=== PATIENT | female | born 1930 | race Caucasian/White ===

== ENCOUNTER 2017-04-04 13:06 | Inpatient (IN) | payer MEDICARE, MEDICAID ==
[~2017-04-04] VITALS: Ht 170.2 cm; Wt 82.1 kg
[~2017-04-04 13:06] MED LIST: ACET-73 PO; ALBU2.5V11 HHN; BISM525O70 PO; CALC-343 PO; DEXT15CA PO; DIVA250T4 PO; DOCU100C68 PO; DONE5TAB3 PO; DONE5TAB8 PO; ENOX40DI SQ; HYDR-3326 PO; IPRA0.2S18 IH; LEVO112T5 PO; LEVO137T PO; MAGN400O6 PO; MULT1TAB11 PO; PANT40TA2 PO; TRAM50TA2 PO
--- NOTE | 2017-04-04 13:20 | NUR ---
BIB [facility] C/O R FOOT PAIN AND SWELLING. PT AAOX2. NOTED ANXIOUS, AGITATED. VSS. SEEN BY MD FOR EVAL. SAFETY AND COMFORT MEASURES PROVIDED. WILL MONITOR.
[2017-04-04] MEDS ORDERED: IV NS 0.9% 1,000 ML ONE ×2 (13:42→14:55)
[2017-04-04] MEDS ORDERED: IV SET PRIMARY PUMP SET 1 EA INFUS.SET MC ONE ×3 (13:42→23:06)
[2017-04-04] MEDS ORDERED: MORPHINE SULFATE INJ 4 MG/ML DISP.SYRIN ONE (13:42)
[2017-04-04] MEDS ORDERED: ONDANSETRON HCL/PF 4 MG/2 ML VIAL ONE (13:42)
--- NOTE | 2017-04-04 13:52 | NUR ---
SPOKE WITH DAUGHTER (DPA) PRABHA JANG AND OBTAINED VERBAL CONSENT FOR TREATMENT
[2017-04-04] MEDS ORDERED: MORPHINE SULFATE INJ 2 MG/ML DISP.SYRIN IV ONE (14:00)
[2017-04-04] MEDS ORDERED: IV NS 0.9% 1,000 ML BAG IV ONE ×2 (14:00→15:00)
[2017-04-04] MEDS ORDERED: ONDANSETRON HCL/PF - ER 4 MG/2 ML VIAL IV ONE (14:00)
--- NOTE | 2017-04-04 14:10 | NUR ---
PT TAKEN TO CT.
[2017-04-04 14:12] LABS: BASOPHILS % (AUTO) 0.3 % (0.0-2.0); EOSINOPHILS # (AUTO) 0.2 /CMM (0.0-0.7); EOSINOPHILS % (AUTO) 1.2 % (0.0-6.0); HEMATOCRIT 42 % (33-45); HEMOGLOBIN 13.8 g/dL (11.5-14.8); LYMPHOCYTES # (AUTO) 2.2 /CMM (0.8-4.8); MEAN CORPUSCULAR HEMOGLOBIN 29 PG (26.0-33.0); MEAN CORPUSCULAR HGB CONC 33 g/dl (31.0-36.0); MEAN CORPUSCULAR VOLUME 87 fL (82-100); MONOCYTES # (AUTO) 1.5 /CMM (0.1-1.30); NEUTROPHILS # (AUTO) 10.1 /CMM (1.8-8.9); NEUTROPHILS % (AUTO) 71.5 % (43.0-81.0); PLATELET COUNT (AUTO) 269 /CMM (150-450); RDW COEFFICIENT OF VARIATION 14.6 (11.5-15.0); RED BLOOD CELL COUNT(AUTO) 4.82 MIL/uL (4.0-5.2)
--- NOTE | 2017-04-04 14:14 | NUR ---
PT NOT READY FOR CT SCAN OR CXR, ER WILL CALL.
[2017-04-04 14:21] LABS: CALCIUM, SERUM 8.6 mg/dL (8.5-10.1); POTASSIUM 4.3 mmol/L (3.5-5.1)
[2017-04-04 14:27] LABS: ALBUMIN 2.9 g/dL (3.4-5.0); BILIRUBIN,DIRECT 0.1 mg/dL (0.0-0.2); BILIRUBIN,TOTAL 0.3 mg/dL (0.2-1.0); TOTAL PROTEIN, SERUM 7.7 g/dL (6.4-8.2)
[2017-04-04] MEDS ORDERED: VANCOMYCIN 1 GM in IV D5W 250 ML IV ONE (15:30)
[2017-04-04] MEDS ORDERED: PIPERACILLIN /TAZOBACTAM 3.375 G in IV D5W 50 ML IV ONE (15:30)
--- NOTE | 2017-04-04 15:38 | NUR ---
SEASONING MIXER AT FOR BLOOD CULTURE DRAW.
--- NOTE | 2017-04-04 15:40 | NUR ---
PAGED DR HANDY FOR CALL BACK
--- NOTE | 2017-04-04 15:40 | NUR ---
INFORMED NURSING STONE UNLOADER OF NEED FOR M/S BED
--- NOTE | 2017-04-04 15:44 | NUR ---
DR HANDY ON THE LINE WITH DR VELAZCO
[2017-04-04 16:13] LABS: APPEARANCE,URINE Clear (CLEAR); BILIRUBIN,URINE Negative (NEGATIVE); BLOOD, URINE Trace-intact Ery/uL (NEGATIVE); COLOR,URINE Yellow (YELLOW); KETONES,URINE 15 (NEGATIVE); LEUKOCYTE ESTERASE ,URINE Small (NEGATIVE); NITRITE, URINE Positive (NEGATIVE); PH,URINE 6.5 (5.0-8.0); PROTEIN,URINE 30 mg/dl (NEGATIVE); UGLUCOSE Negative (NEGATIVE); UROBILINOGEN,URINE 0.2 EU/dL (0.2)
[2017-04-04] MEDS ORDERED: LEVO125T8 PO (16:19)
[2017-04-04] MEDS ORDERED: NA P133E RC (16:19)
[2017-04-04] MEDS ORDERED: CRAN3875 PO (16:19)
[2017-04-04] MEDS ORDERED: MAG30ORA PO (16:19)
[2017-04-04] MEDS ORDERED: BISA10SU8 RC (16:19)
[2017-04-04] MEDS ORDERED: CEPH-570 PO (16:19)
[2017-04-04] MEDS ORDERED: ACET-868 PO (16:19)
[2017-04-04] MEDS ORDERED: CALC-883 PO (16:19)
[2017-04-04] MEDS ORDERED: ASCO-340 PO (16:19)
[2017-04-04] MEDS ORDERED: CRAN425C PO (16:19)
[2017-04-04] MEDS ORDERED: OMEG1CAP PO (16:19)
[2017-04-04] MEDS ORDERED: ZINC220T PO (16:19)
[2017-04-04 16:26] LABS: BACTERIA,URINE Many /HPF (None Seen); RBC,URINE 0-2 /HPF (0-2); SQUAMOUS EPITHELIAL CELL,UR Few /HPF (None Seen); WBC,URINE TOO NUMEROUS TO COUN /HPF (0-3)
--- NOTE | 2017-04-04 16:36 | NUR ---
TELE 204-1
--- NOTE | 2017-04-04 16:54 | NUR ---
report given to etienne zambrano for ms room 204-1
[2017-04-04 17:30] VITALS: BP 122/56
--- NOTE | 2017-04-04 17:30 | NUR ---
MS AC/DC REWINDER PATIENT ADMITTED FROM SNF FOR CELLULITIS. PATIENT BROUGHT FROM ER. PATIENT IS AWAKE, APPEARS ANXIOUS. MADE COMFORTABLE IN BED, V/S TAKEN AND RECORDED. PATIENT IS A/O X2, WITH CONFUSION, UNCOOPERATIVE AND WITH EPISODE OF SCREAMING BEHAVIOR. HAD BOWEL MOVEMENT TODAY, SMALL AMOUNT, PERINEAL CARE PROVIDED. NICOLE CATH INTACT, DRAINING TO GRAVITY, URINE CLEAR AND YELLOW. PLACE CALL LIGHT WITHIN REACH. WILL CONT TO MONITOR.
--- NOTE | 2017-04-04 18:00 | NUR ---
PHYSICIAN ORDERS FAXED TO PHARMACY, SPOKE TO ANTONIO-PHARMACIST STATED HE WILL ENTER THE MEDICATIONS.
[2017-04-04] MEDS ORDERED: FEE PK DOSING 1 MIN EA MC ONE (18:50)
--- NOTE | 2017-04-04 19:30 | NUR ---
MS RN CLOSING NOTES PATIENT IN BED, A/O X2. NOT IN DISTRESS. ON OXYGEN AT 2L/MIN VIA NC, NO SOB NOTED. NO C/O PAIN AT THIS TIME. ENDORSED TO CONDENSER TUBE TENDER RN FOR CONTINUITY OF CARE.
--- NOTE | 2017-04-04 20:00 | NUR ---
PATIENT IS ALERT AND AWAKE, NO SOB, ON 2LPM VIA , 96%, WITH EPISODES OF CONFUSION AND IRRITABILITY, DENIES ANY PAIN AT THIS TIME, RIGHT HAND SALINE LOCK PATENT, NICOLE CATHETER DRAINING WELL WITH YELLOW URINE, SON AT THE BEDSIDE, KEPT SAFE AND COMFORTABLE, CALL LIGHT WITHIN REACH.
[2017-04-04] MEDS ORDERED: ALBUTEROL FS 2.5 MG/3 ML VIAL.NEB NEB PRN (20:30)
[2017-04-04] MEDS ORDERED: HYDROCODONE/APAP 5/325MG 1 EACH TABLET PO PRN (20:30)
[2017-04-04] MEDS ORDERED: POLYETHYLENE GLYCOL 3350 17 GM POWD.PACK ONE (20:54)
[2017-04-04] MEDS ORDERED: MAGNESIUM CITRATE 296 ML BOTTLE ONE (20:55)
[2017-04-04] MEDS ORDERED: CEPHALEXIN MONOHYDRATE 500 MG CAPSULE PO ONE (20:56)
[2017-04-04] MEDS: CEPHALEXIN MONOHYDRATE 500 MG CAPSULE PO SCH (21:04)
[2017-04-04 22:00] VITALS: BP 112/67
[2017-04-04] MEDS ORDERED: MAGNESIUM CITRATE 296 ML BOTTLE PO ONE (22:00)
[2017-04-04] MEDS ORDERED: IV NS 0.9% 250 ML IV ONE (23:06)
[2017-04-04] MEDS ORDERED: SECONDARY IV SET 1 EA INFUS.SET MC ONE (23:07)
[2017-04-04] MEDS: PIPERACILLIN /TAZOBACTAM 2.25 G in IV D5W 50 ML IV SCH (23:27)
[2017-04-04] MEDS ORDERED: ALBUTEROL FS 2.5 MG/3 ML VIAL.NEB NEB SCH (23:30)
[2017-04-05] MEDS ORDERED: ACETAMINOPHEN 325 MG TABLET PO PRN ×3 (03:30→09:00)
[2017-04-05] MEDS ORDERED: HOME MED MISCELLANEOUS XX SCH ×2 (03:30)
[2017-04-05] MEDS ORDERED: MAG HYDROX/AL HYDROX/SIMETH 30 ML UDC PO PRN (03:30)
[2017-04-05] MEDS ORDERED: MAGNESIUM HYDROXIDE 30 ML UDC PO PRN ×2 (03:30→08:00)
[2017-04-05] MEDS ORDERED: NA PHOS,M-B/NA PHOS,DI-BA 1 EA ENEMA RC PRN ×2 (03:30→08:00)
[2017-04-05] MEDS ORDERED: HYDROCODONE/APAP 5/325MG 1 EACH TABLET ONE (04:47)
[2017-04-05] MEDS: PIPERACILLIN /TAZOBACTAM 2.25 G in IV D5W 50 ML IV SCH ×4 (05:26→23:07)
--- NOTE | 2017-04-05 06:44 | NUR ---
PATIENT IS ALERT AND AWAKE, IRRITABLE, HOSTILE DURING NURSING CARE AND DURING MEDICATION ADMINISTRATION, COMPLAINING OF RECTAL PAIN DUE TO CONSTIPATION AND FECAL IMPACTION, GIVEN NORCO. WATERY STOOL COMING OUT X3, RIGHT FOOT OFFLOADED, PROVIDED GOOD PERINEAL CARE, KEPT SAFE AND COMFORTABLE, CALL LIGHT WITHIN REACH.
[2017-04-05 07:02] LABS: BASOPHILS % (AUTO) 0.3 % (0.0-2.0); EOSINOPHILS # (AUTO) 0.1 /CMM (0.0-0.7); EOSINOPHILS % (AUTO) 0.7 % (0.0-6.0); HEMATOCRIT 37 % (33-45); HEMOGLOBIN 12.1 g/dL (11.5-14.8); LYMPHOCYTES # (AUTO) 1.5 /CMM (0.8-4.8); LYMPHOCYTES % (AUTO) 11.4 % (20.0-44.0); MEAN CORPUSCULAR HEMOGLOBIN 29 PG (26.0-33.0); MEAN CORPUSCULAR HGB CONC 33 g/dl (31.0-36.0); MEAN CORPUSCULAR VOLUME 88 fL (82-100); MONOCYTES # (AUTO) 1.5 /CMM (0.1-1.30); MONOCYTES % (AUTO) 11.6 % (2.0-12.0); NEUTROPHILS # (AUTO) 9.8 /CMM (1.8-8.9); PLATELET COUNT (AUTO) 268 /CMM (150-450); RDW COEFFICIENT OF VARIATION 15.8 (11.5-15.0); RED BLOOD CELL COUNT(AUTO) 4.23 MIL/uL (4.0-5.2); WHITE BLOOD COUNT (AUTO) 12.9 K/uL (4.3-11.0)
[2017-04-05 07:06] LABS: CALCIUM, SERUM 7.9 mg/dL (8.5-10.1); CREATININE 0.8 mg/dL (0.6-1.3); MAGNESIUM 2.5 mg/dL (1.8-2.4); PHOSPHORUS 3.1 mg/dL (2.5-4.9); POTASSIUM 4.8 mmol/L (3.5-5.1)
[2017-04-05 08:00] VITALS: BP 106/64
[2017-04-05] MEDS ORDERED: HYDROCODONE/APAP 5/325MG 1 EACH TABLET PO PRN (08:00)
[2017-04-05] MEDS ORDERED: MAG HYDROX/AL HYDROX/SIMETH 30 ML UDC PO SCH (08:00)
[2017-04-05] MEDS ORDERED: BISACODYL SUPP (10 MG) 10 MG/SUPP.RECT SUPP.RECT RC PRN ×2 (08:00→09:00)
[2017-04-05] MEDS ORDERED: ALBUTEROL FS 2.5 MG/3 ML VIAL.NEB NEB PRN (08:00)
[2017-04-05] MEDS ORDERED: MISCELLANEOUS MED 1 EA EA PO PRN (08:00)
[2017-04-05] MEDS: POLYETHYLENE GLYCOL 3350 17 GM POWD.PACK PO SCH (09:00)
[2017-04-05] MEDS ORDERED: TRAMADOL HCL 50 MG TABLET PO SCH (09:00)
[2017-04-05] MEDS ORDERED: Medication Not On Formulary EA (Multivitamins W-Minerals (Multivitamin With Minerals) 1 PO SCH (09:00)
[2017-04-05] MEDS ORDERED: DOCUSATE SODIUM 100 MG CAPSULE PO SCH (09:00)
[2017-04-05] MEDS ORDERED: CALCIUM CARBONATE PO SCH (09:00)
[2017-04-05] MEDS ORDERED: VITAMIN D3 PO SCH (09:00)
[2017-04-05] MEDS ORDERED: Medication Not On Formulary EA (Cran/Vitc/Mannose/Inulin/Brom (Uti-Stat Liquid) 30 ML) PO SCH (09:00)
[2017-04-05] MEDS ORDERED: Medication Not On Formulary EA (Omega-3 Fatty Acids/Fish Oil (Fish Oil 1,000 Mg Capsule) PO SCH ×2 (09:00)
[2017-04-05] MEDS ORDERED: DIVALPROEX SODIUM 250 MG TABLET.DR PO SCH (09:00)
[2017-04-05] MEDS ORDERED: Medication Not On Formulary EA (Cranberry Extract (Cranberry) 425 MG) PO SCH (09:00)
[2017-04-05] MEDS ORDERED: CEPHALEXIN MONOHYDRATE 500 MG CAPSULE PO SCH (09:00)
[2017-04-05] MEDS ORDERED: [UNRECOGNIZED DRUG - OTHER] PO SCH (09:00)
[2017-04-05] MEDS ORDERED: HOME MED MISCELLANEOUS PO SCH (09:00)
[2017-04-05] MEDS: ZINC SULFATE 220 MG CAPSULE PO SCH (09:27)
[2017-04-05] MEDS: TRAMADOL HCL 50 MG TABLET PO SCH ×2 (09:28→17:00)
[2017-04-05] MEDS: LEVOTHYROXINE SODIUM 125 MCG TABLET PO SCH (09:29)
[2017-04-05] MEDS: DIVALPROEX SODIUM 250 MG TABLET.DR PO SCH ×2 (09:29→12:35)
[2017-04-05] MEDS: DOCUSATE SODIUM 100 MG CAPSULE PO SCH (09:29)
[2017-04-05] MEDS: ASCORBIC ACID 500 MG TABLET PO SCH ×3 (09:29→17:00)
[2017-04-05] MEDS: MULTIPLE VIT/MINERALS 1 EA TABLET PO SCH ×2 (09:29→17:00)
[2017-04-05] MEDS: CALCIUM CARB 250MG /VITAMIN D 1 UDTAB PO SCH (09:30)
[2017-04-05] MEDS: ENOXAPARIN SODIUM 40 MG/0.4 ML DISP.SYRIN SQ SCH (09:30)
[2017-04-05] MEDS: CEPHALEXIN MONOHYDRATE 500 MG CAPSULE PO SCH (09:30)
--- NOTE | 2017-04-05 09:30 | NUR ---
MS/RN Labs reviewed Morning labs reviewed: -WBC 12.9 -Urine WBC, too numerous to count
[2017-04-05] MEDS: VANCOMYCIN 0.75 GM in IV D5W 250 ML IV SCH (09:31)
[2017-04-05] MEDS ORDERED: SECONDARY IV SET 1 EA INFUS.SET MC ONE (09:34)
--- NOTE | 2017-04-05 13:15 | NUR ---
MS/RN S/B Dr Harrell Seen by Dr Harrell - labs ordered for tomorrow. Consults ordered for wound care and ID.
[2017-04-05] MEDS ORDERED: ONDANSETRON HCL/PF 4 MG/2 ML VIAL IV PRN (13:30)
[2017-04-05 16:00] VITALS: BP 94/47
[2017-04-05 16:03] VITALS: BP 94/47
[2017-04-05] MEDS ORDERED: Z GUARD REMEDY 2 OZ OINT TP PRN (16:30)
[2017-04-05] MEDS: LACTOBACILLUS RHAMNOSUS GG 1 EACH CAP.SPRINK PO SCH (17:00)
--- NOTE | 2017-04-05 17:10 | NUR ---
MS/electronics utility worker update Daughter at bedside and updated as to plan of care.
--- NOTE | 2017-04-05 18:52 | NUR ---
MS RN CLOSING NOTES PT IS IN BED RESTING. SON AT BEDSIDE. PT HAS REFUSED MEDS, NEED TO ATTEMPT AGAIN IN 1 HR. A/O X1-2. F/C 500 CC OUTPUT.BM X 1. MEDS HAVE BEEN GIVEN ORALLY AND NEED TO CUT THE BIGGER ONES. PT HAS BEEN REFUSING TO EAT, NEED TO GIVE SNACKS IN BETWEEN. FOLLOW UP WITH WOUND CARE FOR RIGHT ANKLE AND INFECTIOUS CONTROL. BED IS IN LOW POSITION, CALL LIGHT WITHIN REACH. WILL HAND OFF REPORT.
--- NOTE | 2017-04-05 19:30 | NUR ---
MS RN INITIAL NOTE RECEIVED PT AWAKE AND ALERT, CONFUSED AND REFUSING TREATMENT AT TIMES, SEEMS TO RESPOND BETTER IN [place] ALTHOUGH SHE UNDERSTANDS [place] ACCORDING TO SON, PT IS CLEAN/DRY AND COMFORTABLE, WILL REPOSITION EVERY 2 HRS AND ATTEND TO NEEDS PROMPTLY, SAFETY MEASURES WILL BE MAINTAINED AT ALL TIMES, WILL CONTINUE TO MONITOR CLOSELY.
[2017-04-05 20:00] VITALS: BP 111/61
[2017-04-05] MEDS: DONEPEZIL 5 MG TABLET PO SCH (21:29)
[2017-04-05] MEDS ORDERED: DONEPEZIL 5 MG TABLET PO SCH (22:00)
[2017-04-06] MEDS: VANCOMYCIN 0.75 GM in IV D5W 250 ML IV SCH ×2 (04:00→22:02)
[2017-04-06] MEDS: PIPERACILLIN /TAZOBACTAM 2.25 G in IV D5W 50 ML IV SCH ×3 (06:13→17:03)
--- NOTE | 2017-04-06 06:56 | NUR ---
MS RN CLOSING NOTE PT REMAINED STABLE DURING TIN ROOFER, ALL DUE MEDS GIVEN ORDERED, ALL NEED MET, WILL ENDORSE TO INCOMING NURSE FOR MASON.
[2017-04-06 07:16] LABS: BASOPHILS % (AUTO) 0.4 % (0.0-2.0); EOSINOPHILS # (AUTO) 0.2 /CMM (0.0-0.7); EOSINOPHILS % (AUTO) 1.6 % (0.0-6.0); HEMATOCRIT 36 % (33-45); LYMPHOCYTES % (AUTO) 15.6 % (20.0-44.0); MEAN CORPUSCULAR HEMOGLOBIN 29 PG (26.0-33.0); MEAN CORPUSCULAR HGB CONC 33 g/dl (31.0-36.0); MEAN CORPUSCULAR VOLUME 87 fL (82-100); MONOCYTES # (AUTO) 1.5 /CMM (0.1-1.30); MONOCYTES % (AUTO) 11.9 % (2.0-12.0); NEUTROPHILS # (AUTO) 9.1 /CMM (1.8-8.9); NEUTROPHILS % (AUTO) 70.5 % (43.0-81.0); PLATELET COUNT (AUTO) 256 /CMM (150-450); RDW COEFFICIENT OF VARIATION 15.5 (11.5-15.0); RED BLOOD CELL COUNT(AUTO) 4.13 MIL/uL (4.0-5.2); WHITE BLOOD COUNT (AUTO) 12.9 K/uL (4.3-11.0)
[2017-04-06] MEDS ORDERED: LEVOTHYROXINE SODIUM 125 MCG TABLET PO SCH (07:30)
--- NOTE | 2017-04-06 07:34 | NUR ---
RN MS NOTES PT IN BED, AWAKE, ALERT, VERBALLY RESPONSIVE, NO COMPLAINT OF PAIN OR ANY DISCOMFORT, RESPIRATIONS EVEN AND NOT LABORED, CALL LIGHT WITHIN REACH, KEPT WARM AND COMFORTABLE IN BED.
[2017-04-06 07:40] LABS: CARBON DIOXIDE 32 mmol/L (21-32); CHLORIDE 101 mmol/L (98-107); CREATININE 0.9 mg/dL (0.6-1.3); GLUCOSE 119 mg/dL (74-106); MAGNESIUM 2.6 mg/dL (1.8-2.4); POTASSIUM 4.7 mmol/L (3.5-5.1); SODIUM SERUM 138 mmol/L (136-145); UREA NITROGEN, BLOOD 16 mg/dL (7-18)
[2017-04-06 08:00] VITALS: BP 110/67
[2017-04-06] MEDS: ENOXAPARIN SODIUM 40 MG/0.4 ML DISP.SYRIN SQ SCH (09:00)
[2017-04-06] MEDS: CALCIUM CARB 250MG /VITAMIN D 1 UDTAB PO SCH (09:00)
[2017-04-06] MEDS: ASCORBIC ACID 500 MG TABLET PO SCH ×3 (09:00→16:52)
[2017-04-06] MEDS: POLYETHYLENE GLYCOL 3350 17 GM POWD.PACK PO SCH (09:36)
[2017-04-06] MEDS: MULTIPLE VIT/MINERALS 1 EA TABLET PO SCH ×2 (09:36→16:52)
[2017-04-06] MEDS: LEVOTHYROXINE SODIUM 125 MCG TABLET PO SCH (09:37)
[2017-04-06] MEDS: ZINC SULFATE 220 MG CAPSULE PO SCH (09:37)
[2017-04-06] MEDS: DOCUSATE SODIUM 100 MG CAPSULE PO SCH (09:37)
[2017-04-06] MEDS: LACTOBACILLUS RHAMNOSUS GG 1 EACH CAP.SPRINK PO SCH ×2 (09:38→16:52)
[2017-04-06] MEDS: DIVALPROEX SODIUM 250 MG TABLET.DR PO SCH ×3 (09:38→22:00)
[2017-04-06] MEDS: TRAMADOL HCL 50 MG TABLET PO SCH ×2 (09:38→16:52)
--- NOTE | 2017-04-06 11:41 | NUR ---
WOUND CARE CONSULT: PT PRESENTS WITH RT ANKLE ULCER, UNSTAGEABLE, PRESENT ON ADMISSION. PT ALSO NOTED TO HAVE SLIGHT RASH TO BUTTOCKS, PERINEUM. RECOMMENDATIONS MADE AND DISCUSSED WITH NURSING STAFF FOR WOUND CARE AND SKIN PROTECTION. PT HAS NICOLE CATH BUT IS INCONTINENT OF STOOL. PT ON LACEY PRESSURE REDITRIBUTION MATTRESS. ANNABEL SCORE IS 14. DPM CONSULT CALLED BY . WILL SEE PRN. BLAS IN AGREEMENT WITH PLAN OF CARE. Addendum: 04/06/17 at 1143 by LOIDA SALAZAR WNDNU Amended: Links added.
[2017-04-06] MEDS ORDERED: HYDROGEL DRESSING 90 GM TUBE TP PRN (12:00)
--- NOTE | 2017-04-06 12:00 | NUR ---
RN MS NOTES PT IN BED, SLEEPING INTERMITTENTLY, WITH EPISODES OF BEING NON COMPLIANT, PT SEEN BY DR. GONZALEZ, ORDERS MADE, NOTED AND CARRIED OUT, ASSISTED WITH MEALS, ASSISTED IN TURNING AND REPOSITIONING, SEEN BY WOUND CARE NURSE, RECOMMENDATIONS MADE.
[2017-04-06] MEDS: CLOTRIMAZOLE 1% 15 GM TUBE TP SCH ×2 (14:24→16:53)
[2017-04-06] MEDS: HYDROGEL DRESSING 90 GM TUBE TP SCH (14:24)
[2017-04-06 16:00] VITALS: BP 120/63
--- NOTE | 2017-04-06 18:24 | NUR ---
RN MS NOTES PT IN BED, AWAKE, ALERT AND ORIENTED, WATCHING TV WHILE EATING DINNER, NO COMPLAINT AT THIS TIME, NOT IN DISTRESS, MIDLINE AT RIGHT UPPER ARM PLACED PER DR. GONZALEZ'S ORDER, TOLERATED PROCEDURE WELL, WOUND TREATMENT DONE, DRESSING CHANGE DONE, KEPT BOTH HEELS OFFLOADED, PM CARE RENDERED, F/C INTACT AND PATENT, DRAINING WELL WITH CLEAR, YELLOW URINE, ALL NEEDS ATTENDED.
--- NOTE | 2017-04-06 19:35 | NUR ---
MS RN NOTES RECEIVED PT IN BED, AWAKE, A/O 1-2. VERBALLY RESPONSIVE. NO DISTRESS, NO SOB NOTED. RESPIRATION IS EVEN AND UNLABORED. ABDOMEN IS SOFT AND NON DISTENDED. PRAMOD MIDLINE, AND LEFT WRIST IV INTACT AND PATENT, NO S/S OF INFECTION NOTED. RIGHT FOOT WOUND WITH INTACT DRESSING. NO BLEEDING AT THIS TIME. FC IS INTACT AND PATENT. DENIES ANY PAIN OR DISCOMFORT AT THIS TIME. ALL NEEDS ATTENDED. CALL LIGHT WITHIN REACH. WILL CONT TO MONITOR.
[2017-04-06 20:00] VITALS: BP 109/61
[2017-04-06 22:00] VITALS: BP 109/61
[2017-04-06] MEDS: DONEPEZIL 5 MG TABLET PO SCH (22:00)
--- NOTE | 2017-04-06 22:24 | NUR ---
PT REFUSED ARICEPT AND DEPAKOTE, VERBALIZED " LEAVE ME ALONE, YOU'RE BOTHERING ME, I'M SLEEPING" RISK AND BENEFITS EXPLAINED , PT STILL REFUSED X 3. IMPORTANCE OF THE MEDICATION EXPLAINED TO THE PT, PT VERBALIZED " I DON'T CARE " . WILL CONT TO MONITOR.
[2017-04-07] MEDS: PIPERACILLIN /TAZOBACTAM 2.25 G in IV D5W 50 ML IV SCH ×4 (00:53→17:27)
[2017-04-07 06:37] LABS: BASOPHILS % (AUTO) 0.4 % (0.0-2.0); EOSINOPHILS # (AUTO) 0.3 /CMM (0.0-0.7); EOSINOPHILS % (AUTO) 2.8 % (0.0-6.0); HEMATOCRIT 29 % (33-45); HEMOGLOBIN 9.5 g/dL (11.5-14.8); LYMPHOCYTES # (AUTO) 1.6 /CMM (0.8-4.8); LYMPHOCYTES % (AUTO) 16.5 % (20.0-44.0); MEAN CORPUSCULAR HEMOGLOBIN 29 PG (26.0-33.0); MEAN CORPUSCULAR HGB CONC 33 g/dl (31.0-36.0); MEAN CORPUSCULAR VOLUME 87 fL (82-100); MONOCYTES # (AUTO) 1.2 /CMM (0.1-1.30); MONOCYTES % (AUTO) 11.8 % (2.0-12.0); NEUTROPHILS # (AUTO) 6.8 /CMM (1.8-8.9); NEUTROPHILS % (AUTO) 68.5 % (43.0-81.0); PLATELET COUNT (AUTO) 159 /CMM (150-450); RDW COEFFICIENT OF VARIATION 15.3 (11.5-15.0); RED BLOOD CELL COUNT(AUTO) 3.28 MIL/uL (4.0-5.2); WHITE BLOOD COUNT (AUTO) 9.9 K/uL (4.3-11.0)
--- NOTE | 2017-04-07 06:42 | NUR ---
MS RN NOTES PT IN BED, RESTING COMFORTABLY, AROUSES EASILY, A/O 1-2. VERBALLY RESPONSIVE. NO DISTRESS, NO SOB NOTED. RESPIRATION IS EVEN AND UNLABORED. ABDOMEN IS SOFT AND NON DISTENDED. PRAMOD MIDLINE, AND LEFT WRIST IV INTACT AND PATENT, NO S/S OF INFECTION NOTED. RIGHT FOOT WOUND WITH INTACT DRESSING. NO BLEEDING AT THIS TIME. FC IS INTACT AND PATENT, DRAINING WELL WITH YELLOW URINE, NO HEMATURIA NOTED. DENIES ANY PAIN OR DISCOMFORT AT THIS TIME. ALL NEEDS ATTENDED. CALL LIGHT WITHIN REACH. WILL ENDORSE TO NEXT SHIFT FOR MASON.
[2017-04-07] MEDS: LEVOTHYROXINE SODIUM 125 MCG TABLET PO SCH (07:30)
--- NOTE | 2017-04-07 07:30 | NUR ---
RN MS NOTES PT IN BED, ASLEEP, EASILY AROUSABLE, ALERT AND VEBALLY RESPONSIVE, DENIES PAIN, NOT IN DISTRESS, REPOSITIONED FOR COMFORT, MIDLINE AT RIGHT UPPER ARM INTACT AND PATENT, KEPT COMFORTABLE.
[2017-04-07 08:00] VITALS: BP 109/63
[2017-04-07 08:59] LABS: CARBON DIOXIDE 30 mmol/L (21-32); CHLORIDE 103 mmol/L (98-107); CREATININE 0.8 mg/dL (0.6-1.3); GLUCOSE 95 mg/dL (74-106); MAGNESIUM 2.2 mg/dL (1.8-2.4); PHOSPHORUS 3.5 mg/dL (2.5-4.9); POTASSIUM 4.2 mmol/L (3.5-5.1); SODIUM SERUM 139 mmol/L (136-145); UREA NITROGEN, BLOOD 14 mg/dL (7-18)
[2017-04-07] MEDS: ASCORBIC ACID 500 MG TABLET PO SCH ×3 (09:00→17:00)
[2017-04-07] MEDS: CALCIUM CARB 250MG /VITAMIN D 1 UDTAB PO SCH (09:00)
[2017-04-07] MEDS: MULTIPLE VIT/MINERALS 1 EA TABLET PO SCH ×2 (09:00→17:00)
[2017-04-07] MEDS: CLOTRIMAZOLE 1% 15 GM TUBE TP SCH ×2 (09:15→17:27)
[2017-04-07] MEDS: HYDROGEL DRESSING 90 GM TUBE TP SCH (09:15)
[2017-04-07] MEDS: ZINC SULFATE 220 MG CAPSULE PO SCH (09:24)
[2017-04-07] MEDS: DIVALPROEX SODIUM 250 MG TABLET.DR PO SCH ×3 (09:24→21:10)
[2017-04-07] MEDS: LACTOBACILLUS RHAMNOSUS GG 1 EACH CAP.SPRINK PO SCH ×2 (09:24→17:00)
[2017-04-07] MEDS: DOCUSATE SODIUM 100 MG CAPSULE PO SCH (09:25)
[2017-04-07] MEDS: ENOXAPARIN SODIUM 40 MG/0.4 ML DISP.SYRIN SQ SCH (09:28)
[2017-04-07] MEDS: POLYETHYLENE GLYCOL 3350 17 GM POWD.PACK PO SCH (09:30)
[2017-04-07] MEDS: TRAMADOL HCL 50 MG TABLET PO SCH ×2 (09:31→17:00)
[2017-04-07] MEDS: VANCOMYCIN 1 GM in IV D5W 250 ML IV SCH (09:40)
[2017-04-07] MEDS: MUPIROCIN OINT 2% 22 GM TUBE SCH ×2 (12:04→21:03)
--- NOTE | 2017-04-07 13:00 | NUR ---
RN MS NOTES PT IN BED, EASILY AROUSABLE, ALERT AND VERBALLY RESPONSIVE, NO COMPLAINT OF PAIN AT THIS TIME, NOT IN DISTRESS, ASSISTED WITH MEALS, SEEN BY DR. GONZALEZ, F/C INTACT AND PATENT, DRAINING WELL WITH CLEAR, YELLOW URINE, NEEDS ATTENDED.
[2017-04-07 16:00] VITALS: BP 129/59
--- NOTE | 2017-04-07 18:30 | NUR ---
RN MS NOTES PT IN BED, AWAKE, ALERT, NO COMPLAINT OF PAIN, RESPIRATIONS NORMAL AND NOT LABORED, PT REFUSED ALL PM MEDS AND PM CARE, EXPLAINED RISKS AND BENEFITS, STILL REFUSED, SAID "GO AWAY" TO STAFF, CALL LIGHT WITHIN REACH, TURNED AND REPOSITIONED Q2 HRS, SEEN BY DR. GEORGES, SPOKE WITH JEANNA SEGURA, INFORMED OF PT'S RIGHT ANKLE XRAY RESULT, SAID HE WILL SEE PT TOMORROW.
--- NOTE | 2017-04-07 19:30 | NUR ---
MS/RN NOTES RECEIVED PT. LYING IN BED. AWAKE, ALERT AND ORIENTED X2. BREATHING EVEN AND UNLABORED ON 2LPM O2 VIA NC. NO SOB, RESPIRATORY DISTRESS OR COMPLAINTS OF PAIN NOTED AT THIS TIME. PT. WITH RIGHT UPPER ARM MIDLINE PRESENT, PATENT AND INTACT. PT. WITH LEFT WRIST 22 GAUGE IV SALINE LOCK PRESENT, PATENT AND INTACT. PT. WITH NICOLE CATHETER PRESENT, PATENT AND INTACT DRAINING CLEAR YELLOW URINE. PT. WITH FAMILY MEMBER PRESENT AT BEDSIDE. BED IN LOWEST POSITION, CALL LIGHT WITHIN REACH, WILL CONTINUE TO MONITOR.
[2017-04-07 19:59] VITALS: BP 123/79
[2017-04-07] MEDS: DONEPEZIL 5 MG TABLET PO SCH (21:10)
[2017-04-08] MEDS: PIPERACILLIN /TAZOBACTAM 2.25 G in IV D5W 50 ML IV SCH ×3 (00:19→12:07)
[2017-04-08] MEDS ORDERED: SECONDARY IV SET 1 EA INFUS.SET MC ONE ×2 (02:55→11:46)
[2017-04-08] MEDS: VANCOMYCIN 1 GM in IV D5W 250 ML IV SCH (02:57)
[2017-04-08 04:53] VITALS: BP 123/79
--- NOTE | 2017-04-08 06:31 | NUR ---
MS/RN NOTES PT. LYING IN BED RESTING. BREATHING EVEN AND UNLABORED ON 2LPM O2 VIA NC. NO SOB, RESPIRATORY DISTRESS OR COMPLAINTS OF PAIN NOTED AT THIS TIME. PT. WITH RIGHT UPPER ARM MIDLINE PRESENT, PATENT AND INTACT. PT. WITH LEFT WRIST 22 GAUGE IV SALINE LOCK PRESENT, PATENT AND INTACT. PT. WITH NICOLE CATHETER PRESENT, PATENT AND INTACT. EMPTIED 500 ML CLEAR YELLOW URINE. ALL PT. NEEDS MET. BILATERAL LOWER EXTREMITIES OFFLOADED ON PILLOWS AT ALL TIMES. TURNED AND REPOSITIONED Q2H AND NEEDED. BED IN LOWEST POSITION, CALL LIGHT WITHIN REACH, WILL ENDORSE TO DAYSHIFT NURSE FOR CONTINUITY OF CARE.
[2017-04-08 06:39] LABS: BASOPHILS % (AUTO) 0.2 % (0.0-2.0); EOSINOPHILS # (AUTO) 0.3 /CMM (0.0-0.7); HEMATOCRIT 37 % (33-45); HEMOGLOBIN 12.3 g/dL (11.5-14.8); LYMPHOCYTES # (AUTO) 1.9 /CMM (0.8-4.8); LYMPHOCYTES % (AUTO) 13.6 % (20.0-44.0); MEAN CORPUSCULAR HEMOGLOBIN 29 PG (26.0-33.0); MEAN CORPUSCULAR HGB CONC 33 g/dl (31.0-36.0); MEAN CORPUSCULAR VOLUME 87 fL (82-100); MONOCYTES # (AUTO) 1.5 /CMM (0.1-1.30); MONOCYTES % (AUTO) 10.5 % (2.0-12.0); NEUTROPHILS # (AUTO) 10.2 /CMM (1.8-8.9); NEUTROPHILS % (AUTO) 73.7 % (43.0-81.0); PLATELET COUNT (AUTO) 283 /CMM (150-450); RDW COEFFICIENT OF VARIATION 15.5 (11.5-15.0); RED BLOOD CELL COUNT(AUTO) 4.26 MIL/uL (4.0-5.2); WHITE BLOOD COUNT (AUTO) 13.9 K/uL (4.3-11.0)
[2017-04-08 06:51] LABS: CARBON DIOXIDE 32 mmol/L (21-32); CHLORIDE 103 mmol/L (98-107); CREATININE 1.2 mg/dL (0.6-1.3); GLUCOSE 119 mg/dL (74-106); MAGNESIUM 2.5 mg/dL (1.8-2.4); PHOSPHORUS 4.5 mg/dL (2.5-4.9); POTASSIUM 4.4 mmol/L (3.5-5.1); SODIUM SERUM 141 mmol/L (136-145); UREA NITROGEN, BLOOD 16 mg/dL (7-18)
--- NOTE | 2017-04-08 07:20 | NUR ---
MS RN NOTES: PT IN BED, AWAKE, REMAINS A/O X1, CONFUSED, ABLE TO BE REORIENTED NEEDED,IN NO APPARENT PAIN OR DISCOMFORT AT THIS TIME, REMAINS ON RA, RESPIRATIONS EVEN AND UNLABORED.DRESSING TO RIGHT FOOT C/D/I, IV ACCESS PATENT AND INTACT, NO REDNESS OR INFILTRATION NOTED.VS REMAINS STABLE, ALL NEEDS ATTENDED. WILL CONTINUE TO MONITOR
[2017-04-08 08:00] VITALS: BP 111/75
[2017-04-08 08:08] VITALS: BP 111/75
[2017-04-08] MEDS: DOCUSATE SODIUM 100 MG CAPSULE PO SCH (08:45)
[2017-04-08] MEDS: TRAMADOL HCL 50 MG TABLET PO SCH ×2 (08:45→17:00)
[2017-04-08] MEDS: CALCIUM CARB 250MG /VITAMIN D 1 UDTAB PO SCH (08:46)
[2017-04-08] MEDS: MULTIPLE VIT/MINERALS 1 EA TABLET PO SCH ×2 (08:46→17:00)
[2017-04-08] MEDS: ASCORBIC ACID 500 MG TABLET PO SCH ×3 (08:46→17:00)
[2017-04-08] MEDS: LEVOTHYROXINE SODIUM 125 MCG TABLET PO SCH (08:47)
[2017-04-08] MEDS: LACTOBACILLUS RHAMNOSUS GG 1 EACH CAP.SPRINK PO SCH ×2 (08:47→17:00)
[2017-04-08] MEDS: DIVALPROEX SODIUM 250 MG TABLET.DR PO SCH ×2 (08:47→12:07)
[2017-04-08] MEDS: POLYETHYLENE GLYCOL 3350 17 GM POWD.PACK PO SCH (08:47)
[2017-04-08] MEDS: MUPIROCIN OINT 2% 22 GM TUBE SCH (08:48)
[2017-04-08] MEDS: ZINC SULFATE 220 MG CAPSULE PO SCH (08:48)
[2017-04-08] MEDS: HYDROGEL DRESSING 90 GM TUBE TP SCH (08:49)
[2017-04-08] MEDS: CLOTRIMAZOLE 1% 15 GM TUBE TP SCH (08:49)
[2017-04-08] MEDS: ENOXAPARIN SODIUM 40 MG/0.4 ML DISP.SYRIN SQ SCH (08:58)
[2017-04-08] MEDS ORDERED: IV SET PRIMARY PUMP SET 1 EA INFUS.SET MC ONE (11:46)
[2017-04-08] MEDS ORDERED: IV NS 0.9% 250 ML IV ONE (11:46)
[2017-04-08] MEDS ORDERED: CADEXOMER IODINE 40 GM TUBE TP SCH (13:30)
[2017-04-08] MEDS: NYSTATIN TOP POWDER 15 GM BOTTLE TP SCH ×2 (13:30→17:00)
[2017-04-08 16:00] VITALS: BP 135/76
--- NOTE | 2017-04-08 16:49 | NUR ---
MS RN NOTES: PT IN BED, AWAKE, REMAINS A/O X1, CONFUSED, ABLE TO BE REORIENTED NEEDED,IN NO APPARENT PAIN OR DISCOMFORT AT THIS TIME, REMAINS ON RA, RESPIRATIONS EVEN AND UNLABORED.DRESSING TO RIGHT FOOT C/D/I, IV ACCESS PATENT AND INTACT, NO REDNESS OR INFILTRATION NOTED.VS REMAINS STABLE, ALL NEEDS ATTENDED. WILL CONTINUE TO MONITOR PT WITH ORDERS FOR DISCHARGE TO SNF, DAUGHTER AWARE, ALL BELONGINGS ACCOUNTED FOR GLASSES WITH LEFT LENSE MISSING SINCE ADMISSION. PICTURES OF SKIN TAKEN PT REFUSED PICTURE OF LEFT HIP , IV SITES AND ANY FURTHER MEDICATIONS CONTINUOUSLY YELLS OUT "STOP STOP, DONT TOUCH ME, DONT TOUCH ME" RESPECTED PT RIGHTS. SNF RN AND FAMILY AWARE OF DISCHARGE INSTRUCTIONS,AND CONTINUED TREATMENT WILL AWAIT TRANSPORTATION AND CONTINUE TO MONITOR Addendum: 04/08/17 at 1653 by ADEOLA POWELL RN RN NOTES PATIENT ALSO REFUSED REMOVAL OF NICOLE CATHETER, AWARE
--- NOTE | 2017-04-08 17:20 | NUR ---
RN NOTES EMT IN FACILITY TO MEDICAL ASSEMBLER PT, NOTED IN STABLE CONDITION, REPORT GIVEN FOR CONTINUITY OF CARE
== END 2017-04-08 17:20 | DRG 540 ==
LOC: ER 13:08 → MEDSG2 17:11
PROVIDERS: ADMIT Internal Medicine; ATTEND Internal Medicine
PROC: 05H533Z Insertion of Infusion Device into Right Subclavian Vein, Percutaneous Approach (ICD-10-PCS; principal; 2017-04-07)
DX: M86.8X7 Other osteomyelitis, ankle and foot (principal); L03.115 Cellulitis of right lower limb; E44.1 Mild protein-calorie malnutrition; L97.319 Non-pressure chronic ulcer of right ankle with unspecified severity; K56.41 Fecal impaction; E03.9 Hypothyroidism, unspecified; F02.80 Dementia in other diseases classified elsewhere, unspecified severity, without behavioral disturbance, psychotic disturbance, mood disturbance, and anxiety; G30.9 Alzheimer's disease, unspecified; F31.9 Bipolar disorder, unspecified; D64.9 Anemia, unspecified; K21.9 Gastro-esophageal reflux disease without esophagitis; L30.4 Erythema intertrigo; M81.0 Age-related osteoporosis without current pathological fracture; Z22.322 Carrier or suspected carrier of Methicillin resistant Staphylococcus aureus; Z96.642 Presence of left artificial hip joint; R79.89 Other specified abnormal findings of blood chemistry; Z68.28 Body mass index [BMI] 28.0-28.9, adult; E78.5 Hyperlipidemia, unspecified; L98.8 Other specified disorders of the skin and subcutaneous tissue; L97.519 Non-pressure chronic ulcer of other part of right foot with unspecified severity; G89.29 Other chronic pain; I10 Essential (primary) hypertension; Z79.899 Other long term (current) drug therapy
CPT/HCPCS: 36415; 71010-TC; 73610-TC; 80048-TC; 80076-TC; 80202-TC; 81000-TC; 83690-TC; 83735-TC; 84100-TC; 85025-TC; 85652-TC; 87040-TC; 87070-TC; 87081-TC; 87086-TC; 93925-TC; 93970-TC; 94799-TC; A4606; A6248; A6403; J1650; J2270; J2405; J2543; J3370; J7030; J7050; J7060; Z7610

== ENCOUNTER 2018-01-27 19:43 | Inpatient (IN) | payer MEDICARE, MEDICAID ==
[~2018-01-27] VITALS: Ht 162.6 cm; Wt 77.1 kg
[~2018-01-27 19:43] MED LIST changes: +ACET-868 PO; +ASCO-340 PO; +BISA10SU8 RC; -BISM525O70 PO; -CALC-343 PO; +CALC-883 PO; +CEPH-570 PO; +CRAN3875 PO; +CRAN425C6 PO; -DEXT15CA PO; -DONE5TAB3 PO; -ENOX40DI SQ; -HYDR-3326 PO; +HYDR-3974 PO; -IPRA0.2S18 IH; -LEVO112T5 PO; +LEVO125T8 PO; -LEVO137T PO; +MAG30ORA PO; +NA P133E RC; +OMEG1CAP PO; -PANT40TA2 PO; +ZINC220T PO
--- NOTE | 2018-01-27 19:50 | NUR ---
TO BED 8 AN 87 YO FEMALE PATIENT [facility] FOR [facility] / CONGESTION. PATIENT NOTED TO BE MORE ALTERED THAN USUAL. PATIENT IS RESPONSIVE TO VERBAL AND TACTILE STIMULI, HOWEVER DOES NOT VERBALLY RESPOND. PLACED PATIENT ON TELE MONITOR. KEPT HOB ELEVATED. NOTED O2 SAT ON ROOM AIR AT 89%. MAINTAINED ON O2 CANNULA AT 3LPM AT THIS TIME. WILL MONITOR CLOSELY.
--- NOTE | 2018-01-27 20:10 | NUR ---
started a saline lock on the left hand g18, blood drawn and sent to lab.
[2018-01-27 20:18] LABS: BASOPHILS # (AUTO) 0.6 /CMM (0.0-0.2); EOSINOPHILS % (AUTO) 0.2 % (0.0-6.0); HEMATOCRIT 39 % (33-45); HEMOGLOBIN 12.6 g/dL (11.5-14.8); LYMPHOCYTES # (AUTO) 1.7 /CMM (0.8-4.8); LYMPHOCYTES % (AUTO) 8.3 % (20.0-44.0); MEAN CORPUSCULAR HGB CONC 33 g/dl (31.0-36.0); MEAN CORPUSCULAR VOLUME 86 fL (82-100); MONOCYTES # (AUTO) 2.1 /CMM (0.1-1.30); MONOCYTES % (AUTO) 9.8 % (2.0-12.0); NEUTROPHILS # (AUTO) 16.6 /CMM (1.8-8.9); NEUTROPHILS % (AUTO) 78.7 % (43.0-81.0); PLATELET COUNT (AUTO) 510 /CMM (150-450); RED BLOOD CELL COUNT(AUTO) 4.51 MIL/uL (4.0-5.2)
[2018-01-27] MEDS ORDERED: IV NS 0.9% 1,000 ML BAG IV ONE (20:30)
[2018-01-27] MEDS ORDERED: ALBUTEROL FS 2.5 MG/3 ML VIAL.NEB NEB ONE (20:30)
[2018-01-27] MEDS ORDERED: ALBUTEROL FS 2.5 MG/3 ML VIAL.NEB ONE (20:33)
[2018-01-27 20:53] LABS: TROPONIN I < 0.017 ng/mL (0.00-0.056)
[2018-01-27 20:58] LABS: ALANINE AMINOTRANSFERASE 15 U/L (12-78); ALBUMIN 2.2 g/dL (3.4-5.0); ALKALINE PHOSPHATASE 77 U/L (46-116); ASPARTATE AMINOTRANSFERASE 20 U/L (15-37); B-TYPE NATRIURETIC PEPTIDE 265 PG/ML (0-125); BILIRUBIN,DIRECT 0.1 mg/dL (0.0-0.2); BILIRUBIN,TOTAL 0.2 mg/dL (0.2-1.0); CALCIUM, SERUM 8.9 mg/dL (8.5-10.1); CARBON DIOXIDE 27 mmol/L (21-32); CREATININE 1.2 mg/dL (0.6-1.3); GLUCOSE 197 mg/dL (74-106); POTASSIUM 4.3 mmol/L (3.5-5.1); TOTAL PROTEIN, SERUM 8.2 g/dL (6.4-8.2); UREA NITROGEN, BLOOD 52 mg/dL (7-18)
[2018-01-27 20:59] LABS: CHLORIDE 96 mmol/L (98-107); SODIUM SERUM 133 mmol/L (136-145)
[2018-01-27] MEDS ORDERED: LEVOFLOXACIN 750 MG /D5W 150ML 150 ML IV ONE ×2 (21:30→21:40)
[2018-01-27] MEDS ORDERED: PIPERACILLIN /TAZOBACTAM 3.375 G in IV D5W 50 ML IV ONE (21:30)
[2018-01-27 21:40] LABS: BAND % (MANUAL) 6 % (0.0-5.0); LYMPHOCYTES % (MANUAL) 4 % (16-48); MONOCYTES % (MANUAL) 8 % (0-11.0); NEUTROPHILS % (MANUAL) 82 (42-76)
[2018-01-27] MEDS ORDERED: PIPERACILLIN /TAZOBACTAM 3.375 G VIAL IV ONE (21:40)
--- NOTE | 2018-01-27 21:50 | NUR ---
Debra, son, at bedside communicated to me that he doesnt want that his mom be return to [facility]. will communicate to admitting rn.
--- NOTE | 2018-01-27 22:49 | NUR ---
TRANSFERRED PATIENT TO TELE BED VIA ALS PROTOCOL NO INCIDENT NOTED.
[2018-01-27] MEDS ORDERED: ACETAMINOPHEN 325 MG TABLET PO PRN (23:00)
[2018-01-27] MEDS ORDERED: ONDANSETRON HCL/PF 4 MG/2 ML VIAL IV PRN (23:00)
--- NOTE | 2018-01-27 23:00 | NUR ---
ADMITTED FROM [facility] ER, INITIALLY CAME FROM HOME, C/O WHEEZING AND CONGESTION, ACCOMPANIED BY HER SON. DIAGNOSIS: PNEUMONIA. PLACED COMFORTABLY IN BED. AWAKE,ALERT ORIENTED X3. SHE ANSWERS QUESTIONS ONLY IF SHE LIKES TO TALK. INFO'S WERE TAKEN FROM THE SON. VITALS STABLE. SKIN ASSESSMENT DONE, PHOTOS TAKEN. ORDERS DONE. WOUND CONSULT ORDERED, SPECIAL MATTRESS ORDERED. TURNED AND REPOSITIONED NECESSARY. NPO EXCEPT MEDS, IV FLUIDS STARTED. PATIENT REFUSED FLU AND PNEUMONIA VACCINE. PATIENT WAS ATACHED TO SKI LIFT MECHANIC, SHOWS NSR, NO APPARENT DISTRESS NOTED. WILL CONTINUE TO MONITOR.
--- NOTE | 2018-01-27 23:35 | NUR ---
PATIENT'S DAUGHTER, PRABHA CALLED ASKING FOR HER MOTHER REGARDING HER CURRENT CONDITION, HER MOTHER WAS JUST ADMITTED AT AROUND 2300. PATIENT STABLE AT THE TIME OF ADMISSION.
[2018-01-27 23:45] VITALS: BP 113/75
[2018-01-28] MEDS ORDERED: MAG HYDROX/AL HYDROX/SIMETH 30 ML UDC PO PRN
[2018-01-28] MEDS ORDERED: BISACODYL SUPP (10 MG) 10 MG/SUPP.RECT SUPP.RECT RC PRN
[2018-01-28] MEDS ORDERED: MAGNESIUM HYDROXIDE 30 ML UDC PO PRN
[2018-01-28] MEDS ORDERED: NA PHOS,M-B/NA PHOS,DI-BA 1 EA ENEMA RC PRN
[2018-01-28] MEDS ORDERED: PIPERACILLIN /TAZOBACTAM 3.375 G VIAL IV ONE ×2 (00:12→05:08)
[2018-01-28] MEDS: HYDROCODONE/APAP 5/325MG 1 EACH TABLET PO PRN ×3 (00:36→21:21)
[2018-01-28] MEDS: DONEPEZIL 5 MG TABLET PO SCH ×2 (00:36→21:21)
[2018-01-28] MEDS: PIPERACILLIN /TAZOBACTAM 3.375 G in IV NS 0.9% 50 ML IV SCH ×5 (00:38→23:32)
[2018-01-28] MEDS: IV NS 0.9% 1,000 ML BAG IV PRN (00:39)
[2018-01-28 04:00] VITALS: BP 133/69
--- NOTE | 2018-01-28 05:58 | NUR ---
0036: PATIENT C/O GENERALIZED BODY PAIN, 6/10 ON PAIN SCALE, NORCO 5/325 MG TAB PO GIVEN.
[2018-01-28 06:00] VITALS: BP 127/87
--- NOTE | 2018-01-28 06:07 | NUR ---
0605: PATIENT WOKE UP MOANING, C/O GENERALIZED BODY PAIN, MORE ON HER BACK, 6/10 ON PAIN SCALE, NORCO 5/325 MG TAB 1 PO GIVEN.
--- NOTE | 2018-01-28 07:25 | NUR ---
SENIOR APPLICATIONS ENGINEER/OPENING NOTES RECEIVED PT. IN BED A&OX1-2. TELE MONITOR READING SINUS RHYTHM 85 BPM. BREATHING UNLABORED ON OXYGEN AT 3L/MIN. WITHOUT SOB. NO S/S OF ACUTE DISTRESS. IV FLUIDS RUNNING AT 100 ML/HR. BED IS IN LOWEST, AND LOCKED POSITION. 2 SIDE RAILS UP, AND CALL LIGHT IS WITHIN REACH. ALL NEEDS MET. WILL CONTINUE TO ASSESS AND MONITOR.
[2018-01-28] MEDS ORDERED: DOCUSATE SODIUM 100 MG CAPSULE PO SCH (09:00)
[2018-01-28] MEDS ORDERED: DIVALPROEX SODIUM 250 MG TABLET.DR PO SCH (09:00)
[2018-01-28] MEDS: LEVOTHYROXINE SODIUM 125 MCG TABLET PO SCH (09:42)
[2018-01-28] MEDS: ZINC SULFATE 220 MG CAPSULE PO SCH (09:42)
[2018-01-28] MEDS: ASCORBIC ACID 500 MG TABLET PO SCH ×3 (09:42→18:23)
[2018-01-28] MEDS: TRAMADOL HCL 50 MG TABLET PO SCH ×2 (09:43→18:23)
[2018-01-28] MEDS: MULTIVITAMINS,THERAGRAN 1 UDTAB TABLET PO SCH ×2 (09:47→18:26)
[2018-01-28] MEDS: DOCUSATE SODIUM LIQ 100 MG/10 ML UDC PO SCH (10:15)
[2018-01-28] MEDS ORDERED: SILVER NITRATE APPLICATOR 1 EA BOX TP ONE (10:30)
[2018-01-28] MEDS ORDERED: LIDOCAINE 1%-EPI 1:100,000 20 ML VIAL TP ONE (10:30)
--- NOTE | 2018-01-28 11:00 | NUR ---
RN NOTES A WOUND DEBRIDEMENT WAS PERFROMED AT THE BEDSIDE WITH MEDICAL NURSE.
[2018-01-28] MEDS ORDERED: ENOXAPARIN SODIUM 40 MG/0.4 ML DISP.SYRIN SQ SCH (12:30)
[2018-01-28] MEDS: VALPROIC ACID 250 MG/5 ML UDC GT SCH (12:46)
[2018-01-28] MEDS: ENOXAPARIN SODIUM 30 MG/0.3 ML DISP.SYRIN SQ SCH (12:47)
--- NOTE | 2018-01-28 14:00 | NUR ---
RN NOTES BLADDER SCAN DETECTED >999 CC OF URINE. PER MD ORDERS PLACED A NICOLE CATHETER WITHOUT COMPLICATIONS, AND PT. HAD 1600 CC OF DONAVON, AND CLOUDY URINE OUTPUT. URINE WAS SENT TO LAB FOR URINALYSIS AND URINE CULTURE. PT.'S BLOOD PRESSURE AFTER URINE OUTPUT WAS 123/70, HR 65.
[2018-01-28 15:31] LABS: APPEARANCE,URINE CLOUDY (CLEAR); BILIRUBIN,URINE NEGATIVE (NEGATIVE); BLOOD, URINE 1+ Ery/uL (NEGATIVE); COLOR,URINE YELLOW (YELLOW); KETONES,URINE NEGATIVE (NEGATIVE); LEUKOCYTE ESTERASE ,URINE 3+ (NEGATIVE); NITRITE, URINE NEGATIVE (NEGATIVE); PH,URINE 7.5 (5.0-8.0); PROTEIN,URINE 2+ mg/dl (NEGATIVE); UGLUCOSE NEGATIVE (NEGATIVE); UROBILINOGEN,URINE 0.2 EU/dL (0.2)
[2018-01-28 16:00] VITALS: BP 120/69
[2018-01-28] MEDS ORDERED: HYDROGEL DRESSING 90 GM TUBE TP PRN (16:00)
[2018-01-28 16:35] LABS: BACTERIA,URINE 4+ /HPF (None Seen); WBC,URINE TOO NUMEROUS TO COUN /HPF (0-3)
[2018-01-28 16:36] LABS: SQUAMOUS EPITHELIAL CELL,UR 0-2 /HPF (None Seen)
[2018-01-28] MEDS ORDERED: VALPROIC ACID 250 MG/5 ML UDC GT ONE (17:00)
[2018-01-28] MEDS: DOXYCYCLINE HYCLATE (100 MG) 100 MG TABLET PO SCH (18:23)
--- NOTE | 2018-01-28 19:30 | NUR ---
MS RN OPENING NOTE RECEIVED PATIENT IN BED SITTING COMFORTABLY, ALERT ORIENTED X2. ON 3L OF O2 VIA NC. TOLERATING WELL. IN NO APPARENT DISTRESS OR DISCOMFORT AT THIS TIME. DENIES SOB AND PAIN. RESPIRATIONS EVEN AND UNLABORED. PATIENT WITH NICOLE CATHETER PATENT AND INTACT. LAC 22G, WITH NS RUNNING AT 75ML/HR. ON PUREE DIET. SAFETY MEASURES IN PLACE, BED IN LOW LOCKED POSITION, SIDE RAILS UP X2, CALL LIGHT WITHIN EASY REACH. WILL CONTINUE TO MONITOR.
--- NOTE | 2018-01-28 19:40 | NUR ---
RN CLOSING NOTES PT. IN BED A&OX1-2. PT.'S SON IS AT BEDSIDE. BREATHING UNLABORED ON OXYGEN AT 3L/MIN. WITHOUT SOB. NO S/S OF ACUTE DISTRESS. IV ANTIBIOTICS RUNNING. NEW IV STARTED ON THE LEFT ANTECUBITAL GAUGE 22. BED IS IN LOWEST, AND LOCKED POSITION. 2 SIDE RAILS UP, AND CALL LIGHT IS WITHIN REACH. ALL NEEDS MET. WILL ENDORSE REPORT TO NURSE.
[2018-01-28 20:00] VITALS: BP 122/62
[2018-01-28] MEDS: HYDROGEL DRESSING 90 GM TUBE TP SCH (21:23)
[2018-01-29] MEDS: MORPHINE SULFATE INJ 4 MG/ML DISP.SYRIN IM PRN (01:25)
[2018-01-29] MEDS: PIPERACILLIN /TAZOBACTAM 3.375 G in IV NS 0.9% 50 ML IV SCH ×4 (05:32→23:03)
[2018-01-29 05:48] LABS: BASOPHILS % (AUTO) 0.2 % (0.0-2.0); EOSINOPHILS % (AUTO) 0.8 % (0.0-6.0); HEMATOCRIT 32 % (33-45); HEMOGLOBIN 10.5 g/dL (11.5-14.8); LYMPHOCYTES # (AUTO) 1.5 /CMM (0.8-4.8); LYMPHOCYTES % (AUTO) 9.5 % (20.0-44.0); MEAN CORPUSCULAR HGB CONC 33 g/dl (31.0-36.0); MEAN CORPUSCULAR VOLUME 88 fL (82-100); MONOCYTES # (AUTO) 1.3 /CMM (0.1-1.30); MONOCYTES % (AUTO) 8.5 % (2.0-12.0); NEUTROPHILS # (AUTO) 12.9 /CMM (1.8-8.9); PLATELET COUNT (AUTO) 365 /CMM (150-450); RDW COEFFICIENT OF VARIATION 15.6 (11.5-15.0); RED BLOOD CELL COUNT(AUTO) 3.67 MIL/uL (4.0-5.2); WHITE BLOOD COUNT (AUTO) 15.9 K/uL (4.3-11.0)
[2018-01-29 06:11] LABS: CALCIUM, SERUM 7.7 mg/dL (8.5-10.1); CARBON DIOXIDE 27 mmol/L (21-32); CHLORIDE 101 mmol/L (98-107); CREATININE 0.8 mg/dL (0.6-1.3); GLUCOSE 97 mg/dL (74-106); MAGNESIUM 2.1 mg/dL (1.8-2.4); PHOSPHORUS 3.3 mg/dL (2.5-4.9); POTASSIUM 3.9 mmol/L (3.5-5.1); SODIUM SERUM 136 mmol/L (136-145); UREA NITROGEN, BLOOD 28 mg/dL (7-18)
--- NOTE | 2018-01-29 06:52 | NUR ---
MS RN CLOSING NOTE PATIENT IN BED SLEEPING COMFORTABLY, ALERT ORIENTED X1-2. ON 3L OF O2 VIA NC O2 SATURATING > 93%. TOLERATING WELL. HOB ELEVATED. IN NO APPARENT DISTRESS OR DISCOMFORT AT THIS TIME. NO SOB OBSERVED. RESPIRATIONS EVEN AND UNLABORED. PATIENT WITH NICOLE CATHETER PATENT AND INTACT WITH 500ML OUTPUT. LFA 22G, WITH NS RUNNING AT 75ML/HR. PATIENT KEPT CLEAN AND COMFORTABLE, ALL NEEDS ATTENDED, WOUND CARE PERFORMED. SAFETY MEASURES IN PLACE, BED IN LOW LOCKED POSITION, SIDE RAILS UP X2, CALL LIGHT WITHIN EASY REACH, WILL ENDORSE TO AM NURSE FOR MASON.
--- NOTE | 2018-01-29 07:34 | NUR ---
RN MS NOTES RECEIVED PT RESTING IN BED A&OX1-2 IN NO ACUTE DISTRESS, ABLE TO MAKE NEEDS KNOWN, RESPIRATIONS EVEN AND UNLABORED ON OXYGEN AT 3L/MIN, NO SOB NOTED. LAC 22G INFUSING WITH IV FLUIDS RUNNING AT 100 ML/HR. NICOLE CATH IN PLACE DRAINING YELLOW URINE, SAFETY MEASURES RENDERED, BED IS IN LOWEST, LOCKED POSITION, CALL LIGHT PLACED WITHIN REACH. WILL CONTINUE TO MONITOR.
[2018-01-29 08:00] VITALS: BP 102/57
[2018-01-29] MEDS: DOCUSATE SODIUM LIQ 100 MG/10 ML UDC PO SCH (08:44)
[2018-01-29] MEDS: ENOXAPARIN SODIUM 30 MG/0.3 ML DISP.SYRIN SQ SCH (08:44)
[2018-01-29] MEDS: TRAMADOL HCL 50 MG TABLET PO SCH ×2 (08:45→16:34)
[2018-01-29] MEDS: ASCORBIC ACID 500 MG TABLET PO SCH ×3 (08:45→16:35)
[2018-01-29] MEDS: PANTOPRAZOLE 40 MG TABLET.DR PO SCH (08:45)
[2018-01-29] MEDS: DOXYCYCLINE HYCLATE (100 MG) 100 MG TABLET PO SCH ×2 (08:45→21:39)
[2018-01-29] MEDS: LEVOTHYROXINE SODIUM 125 MCG TABLET PO SCH (08:45)
[2018-01-29] MEDS: ZINC SULFATE 220 MG CAPSULE PO SCH (08:45)
[2018-01-29] MEDS: VALPROIC ACID 250 MG/5 ML UDC GT SCH ×2 (08:45→13:28)
[2018-01-29] MEDS: MULTIVITAMINS,THERAGRAN 1 UDTAB TABLET PO SCH ×2 (08:47→16:35)
[2018-01-29] MEDS: HYDROGEL DRESSING 90 GM TUBE TP SCH ×2 (08:47→21:40)
--- NOTE | 2018-01-29 12:15 | NUR ---
MS/RN NOTES PATIENT SON AT BEDSIDE, DISCUSSED PLAN OF CARE AND DISCHARGE. SON PRESENT DURING BED BATH, LINEN CHANGE AND WOUND CARE. WOUND CAR PROVIDED ORDERED AND REPOSITIONED. WILL CONTINUE TO MONITOR PATIENT.
[2018-01-29] MEDS: IV NS 0.9% 1,000 ML BAG IV PRN (12:23)
--- NOTE | 2018-01-29 13:20 | NUR ---
MS/RN NOTES PATIENT'S IV INFILTRATED, REMOVED AND RE ATTEMPT TO INSERT IV HOWEVER UNABLE TO. PATIENT REQUIRES MIDLINE, CHARGE NURSE AWARE.
--- NOTE | 2018-01-29 13:45 | NUR ---
MS/RN NOTES PATIENT IN STABLE CONDITION, NO SIGNIFICANT CHANGES, ENDORSED CARE FOR CONTINUITY OF CARE.
--- NOTE | 2018-01-29 13:47 | NUR ---
MS/RN REPORT RECEIVED REPORT FROM MADI DELANEY FOR ANY MASON. PATIENT A/O X 1-2, NO SIGNS OF ACUTE DISTRESS. NO COMPLAIN OF PAIN OR DISCOMFORT. ALL NEEDS ATTENDED TO. CALL LIGHT WITHIN REACH. WILL CONTINUE TO MONITOR TO ENSURE SAFETY.
--- NOTE | 2018-01-29 13:50 | NUR ---
MS/RN SPOKE WITH DR GONZALEZ PATIENT'S LEFT FOREARM IV SITE NOTED WITH REDNESS AND SWOLLEN, IV LINE ON LEFT FOREARM REMOVED. TRYING GETTING IV ACCESS BUT UNABLE TO. DR GONZALEZ MADE AWARE WITH ORDER FOR MIDLINE INSERTION. CHARGE NURSE AND NURSING SUP. AWARE.
[2018-01-29 16:00] VITALS: BP 133/97
[2018-01-29] MEDS: LACTOBACILLUS RHAMNOSUS GG 1 EACH CAP.SPRINK PO SCH (16:34)
--- NOTE | 2018-01-29 18:08 | NUR ---
MS/RN MIDLINE INSERTION, SPOKE WITH ANTONIO TODD SPOKE WITH DR ANTONIO TODD AND MADE AWARE PATIENT HAS MIDLINE INSERTION ORDER PER DR GONZALEZ, AND IS CURRENTLY ON ZOSYN Q [address] ANTONIO TODD HE WILL BE THERE LATER TONIGHT AND WILL DO MIDLINE INSERTION.
--- NOTE | 2018-01-29 18:20 | NUR ---
MS/RN CLOSING NOTE PATIENT IN BED IN STABLE CONDITION. A/O X 1-2, NO SIGNS OF ACUTE DISTRESS. NO COMPLAIN OF PAIN OR DISCOMFORT. ALL NEEDS ATTENDED TO. CALL LIGHT WITHIN REACH. WILL ENDORSE TO NEXT SHIFT FOR CONTINUITY OF CARE.
--- NOTE | 2018-01-29 19:28 | NUR ---
RN OPEN NOTES RECEIVED PATIENT AWAKE IN BED WITH SON AT BEDSIDE. A/O X1-2. NO SIGNS OF DISTRESS OR DISCOMFORT. BREATHING EVEN AND UNLABORED. ON 3LPM O2 VIA NC. PATIENT CURRENTLY HAS NO IV ACCESS, AWAITING MIDLINE INSERTION. BED IN LOW LOCKED POSITION WITH SIDE RAILS X2. CALL LIGHT WITHIN REACH. WILL CONTINUE TO MONITOR.
[2018-01-29 20:00] VITALS: BP 145/95
[2018-01-29] MEDS: DONEPEZIL 5 MG TABLET PO SCH (21:39)
[2018-01-30] MEDS: PIPERACILLIN /TAZOBACTAM 3.375 G in IV NS 0.9% 50 ML IV SCH ×3 (06:23→17:05)
--- NOTE | 2018-01-30 06:38 | NUR ---
RN CLOSING NOTES PATIENT RESTING IN BED EASILY AROUSABLE. A/O X1-2. NO SIGNS OF DISTRESS OR DISCOMFORT. BREATHING EVEN AND UNLABORED. ON 3LPM O2 VIA NC. IV ACCESS IN RFA WITH NS INFUSING, PATENT AND INTACT, NO SIGNS OF REDNESS OR INFILTRATION. ALL NEEDS MET. NO SIGNIFICANT CHANGES THROUGH THE NIGHT. PATIENT KEPT CLEAN DRY AND COMFORTABLE. BED IN LOW LOCKED POSITION WITH SIDE RAILS X2. CALL LIGHT WITHIN REACH. WILL ENDORSE TO AM SHIFT FOR MASON. Addendum: 01/30/18 at 0645 by LEO NORRIS RN HAS F/C INTACT WITH CLEAR DONAVON FLUID DRAINING.
--- NOTE | 2018-01-30 07:15 | NUR ---
ms rn initial notes Received patient in bed, awake, head of bed elevated, no SOB or distress noted, on 02 @3lpm via NC, and tolerated well, o2 sat of 95%. Patient is alert and oriented x 1, confused. Chiu in placed attached to drainage bag. IV intact on the RFA with IVF NS infusing well. no facial grimace noted. Call light with in patient reach. Will continue to monitor accordingly.
[2018-01-30 08:00] VITALS: BP 112/63
[2018-01-30] MEDS ORDERED: BISACODYL SUPP (10 MG) 10 MG/SUPP.RECT SUPP.RECT RC PRN (08:30)
[2018-01-30] MEDS ORDERED: LEVOTHYROXINE SODIUM 125 MCG TABLET PO SCH (08:30)
[2018-01-30] MEDS ORDERED: NA PHOS,M-B/NA PHOS,DI-BA 1 EA ENEMA RC PRN (08:30)
[2018-01-30] MEDS ORDERED: HYDROCODONE/APAP 5/325MG 1 EACH TABLET PO PRN (08:30)
[2018-01-30] MEDS ORDERED: MAG HYDROX/AL HYDROX/SIMETH 30 ML UDC PO PRN (08:30)
[2018-01-30] MEDS ORDERED: MAGNESIUM HYDROXIDE 30 ML UDC PO PRN (08:30)
[2018-01-30] MEDS ORDERED: DOCUSATE SODIUM 100 MG CAPSULE PO SCH (09:00)
[2018-01-30] MEDS ORDERED: Medication Not On Formulary EA (Omega-3 Fatty Acids/Fish Oil (Fish Oil 1,000 Mg Capsule) PO SCH (09:00)
[2018-01-30] MEDS ORDERED: Medication Not On Formulary EA (Cranberry Extract (Cranberry) 425 MG) PO SCH (09:00)
[2018-01-30] MEDS ORDERED: Medication Not On Formulary EA (Multivitamins W-Minerals (Multivitamin With Minerals) 1 PO SCH (09:00)
[2018-01-30] MEDS ORDERED: TRAMADOL HCL 50 MG TABLET PO SCH (09:00)
[2018-01-30] MEDS ORDERED: Medication Not On Formulary EA (Cran/Vitc/Mannose/Inulin/Brom (Uti-Stat Liquid) 30 ML) PO SCH (09:00)
[2018-01-30 09:06] VITALS: BP 112/63
[2018-01-30] MEDS: PANTOPRAZOLE 40 MG TABLET.DR PO SCH (09:13)
[2018-01-30] MEDS: DOCUSATE SODIUM LIQ 100 MG/10 ML UDC PO SCH (09:13)
[2018-01-30] MEDS: LEVOTHYROXINE SODIUM 125 MCG TABLET PO SCH (09:13)
[2018-01-30] MEDS: ZINC SULFATE 220 MG CAPSULE PO SCH (09:13)
[2018-01-30] MEDS: ASCORBIC ACID 500 MG TABLET PO SCH ×3 (09:13→17:04)
[2018-01-30] MEDS: MULTIVITAMINS,THERAGRAN 1 UDTAB TABLET PO SCH ×2 (09:13→17:04)
[2018-01-30] MEDS: VALPROIC ACID 250 MG/5 ML UDC GT SCH ×2 (09:13→12:05)
[2018-01-30] MEDS: TRAMADOL HCL 50 MG TABLET PO SCH ×2 (09:13→17:05)
[2018-01-30] MEDS: DOXYCYCLINE HYCLATE (100 MG) 100 MG TABLET PO SCH ×2 (09:13→21:31)
[2018-01-30] MEDS: LACTOBACILLUS RHAMNOSUS GG 1 EACH CAP.SPRINK PO SCH ×2 (09:14→17:05)
[2018-01-30] MEDS: HYDROGEL DRESSING 90 GM TUBE TP SCH ×2 (09:15→21:32)
[2018-01-30] MEDS: DIVALPROEX SODIUM 250 MG TABLET.DR PO SCH ×2 (09:16→17:04)
[2018-01-30] MEDS: ENOXAPARIN SODIUM 30 MG/0.3 ML DISP.SYRIN SQ SCH (09:17)
[2018-01-30] MEDS: CALCIUM CARB 250MG /VITAMIN D 1 UDTAB PO SCH (11:42)
[2018-01-30] MEDS: IV NS 0.9% 1,000 ML BAG IV PRN (11:42)
--- NOTE | 2018-01-30 12:57 | NUR ---
ms rn notes transfer care to Jeny. Patient is in stable condition at this time. Endorsed to continue care.
[2018-01-30] MEDS ORDERED: FUROSEMIDE 40 MG/4 ML VIAL IV ONE (13:30)
[2018-01-30] MEDS ORDERED: IV NS 0.9% 1,000 ML BAG IV PRN (13:30)
[2018-01-30] MEDS: IV NS 0.9% 1,000 ML IV PRN (14:05)
[2018-01-30 16:00] VITALS: BP 135/67
[2018-01-30 16:53] LABS: EOSINOPHILS % (AUTO) 0.3 % (0.0-6.0); HEMATOCRIT 35 % (33-45); HEMOGLOBIN 11.5 g/dL (11.5-14.8); LYMPHOCYTES # (AUTO) 1.9 /CMM (0.8-4.8); LYMPHOCYTES % (AUTO) 7.5 % (20.0-44.0); MEAN CORPUSCULAR HGB CONC 33 g/dl (31.0-36.0); MEAN CORPUSCULAR VOLUME 86 fL (82-100); MONOCYTES % (AUTO) 7.8 % (2.0-12.0); NEUTROPHILS # (AUTO) 21.4 /CMM (1.8-8.9); NEUTROPHILS % (AUTO) 84.4 % (43.0-81.0); PLATELET COUNT (AUTO) 452 /CMM (150-450); RED BLOOD CELL COUNT(AUTO) 4.05 MIL/uL (4.0-5.2); WHITE BLOOD COUNT (AUTO) 25.3 K/uL (4.3-11.0)
[2018-01-30] MEDS: ALBUTEROL FS 2.5 MG/3 ML VIAL.NEB NEB PRN (17:01)
[2018-01-30] MEDS: IPRATROPIUM NEB FS 0.5 MG/2.5 ML AMPUL.NEB NEB PRN (17:01)
[2018-01-30 17:03] LABS: CALCIUM, SERUM 7.5 mg/dL (8.5-10.1); CARBON DIOXIDE 30 mmol/L (21-32); CHLORIDE 97 mmol/L (98-107); CREATININE 0.7 mg/dL (0.6-1.3); GLUCOSE 118 mg/dL (74-106); POTASSIUM 3.1 mmol/L (3.5-5.1); SODIUM SERUM 135 mmol/L (136-145); UREA NITROGEN, BLOOD 11 mg/dL (7-18)
--- NOTE | 2018-01-30 18:42 | NUR ---
MS RN NOTES PATIENT IN BED RESTING NO SOB OR ACUTE DISTRESS NOTED. ALL DUE MEDICATIONS ADMINISTERED. ALL NEEDS MET. PERIPHERAL IV INTACT PATIENT. BED IN LOW LOCKED POSITION, CALL LIGHT WITHIN REACH. WILL ENDORSE CARE TO PM SHIFT.
--- NOTE | 2018-01-30 19:15 | NUR ---
RN OPENING NOTES PT AWAKE AND RESTING IN BED. PT SON AT BEDSIDE. PT IS CONFUSED AND ALERT X1. PT HAS A RIGHT FOREARM IV #20 RUNNING NS @50ML/HR. PT HAS A NICOLE CATHETER INTACT AND PATENT. PER DAY SHIFT OUTPUT OF 2900 AFTER LASIX. SAFETY PRECAUTIONS IN PLACE. BED IN LOW LOCKED POSITION, X3 SIDE RAILS UP. CALL LIGHT WITHIN REACH.
[2018-01-30 20:30] VITALS: BP 99/52
[2018-01-30] MEDS: DONEPEZIL 5 MG TABLET PO SCH (21:32)
[2018-01-30] MEDS ORDERED: DONEPEZIL 5 MG TABLET PO SCH (22:00)
[2018-01-31] MEDS: PIPERACILLIN /TAZOBACTAM 3.375 G in IV NS 0.9% 50 ML IV SCH ×5 (00:03→23:00)
--- NOTE | 2018-01-31 06:37 | NUR ---
RN CLOSING NOTES PT RESTING IN BED. PT IS CONFUSED AND ALERT X1. PT HAS A RIGHT FOREARM IV #20 RUNNING NS @50ML/HR. PT HAS A NICOLE CATHETER INTACT AND PATENT. OUTPUT OF 1000. SAFETY PRECAUTIONS IN PLACE. BED IN LOW LOCKED POSITION, X3 SIDE RAILS UP. CALL LIGHT WITHIN REACH. ALL PT NEEDS MET. WILL ENDORSE TO DAY SHIFT NURSE FOR CONTINUITY OF CARE.
--- NOTE | 2018-01-31 07:15 | NUR ---
ms rn initial notes Received patient in bed, asleep, head of bed elevated, no SOB or distress noted, on 02 @ 3lpm via NC and tolerated well, o2 sat of 96%. IV intact and patent with IVF infusing well. Chiu in placed attached to drainage bag. no facial grimace noted. Call light with in patient reach, will continue to monitor accordingly.
[2018-01-31 07:29] LABS: BASOPHILS % (AUTO) 0.2 % (0.0-2.0); EOSINOPHILS % (AUTO) 0.7 % (0.0-6.0); HEMATOCRIT 34 % (33-45); HEMOGLOBIN 11.3 g/dL (11.5-14.8); LYMPHOCYTES % (AUTO) 9.1 % (20.0-44.0); MEAN CORPUSCULAR HGB CONC 34 g/dl (31.0-36.0); MEAN CORPUSCULAR VOLUME 86 fL (82-100); MONOCYTES # (AUTO) 1.9 /CMM (0.1-1.30); MONOCYTES % (AUTO) 8.7 % (2.0-12.0); NEUTROPHILS # (AUTO) 17.4 /CMM (1.8-8.9); NEUTROPHILS % (AUTO) 81.3 % (43.0-81.0); PLATELET COUNT (AUTO) 345 /CMM (150-450); RDW COEFFICIENT OF VARIATION 15.6 (11.5-15.0); RED BLOOD CELL COUNT(AUTO) 3.89 MIL/uL (4.0-5.2); WHITE BLOOD COUNT (AUTO) 21.4 K/uL (4.3-11.0)
[2018-01-31 07:40] VITALS: BP 119/63
[2018-01-31 07:59] LABS: CALCIUM, SERUM 7.6 mg/dL (8.5-10.1); CARBON DIOXIDE 33 mmol/L (21-32); CHLORIDE 97 mmol/L (98-107); CREATININE 0.7 mg/dL (0.6-1.3); GLUCOSE 119 mg/dL (74-106); MAGNESIUM 1.7 mg/dL (1.8-2.4); PHOSPHORUS 2.7 mg/dL (2.5-4.9); SODIUM SERUM 135 mmol/L (136-145); UREA NITROGEN, BLOOD 10 mg/dL (7-18)
[2018-01-31 08:12] LABS: POTASSIUM 2.8 mmol/L (3.5-5.1)
[2018-01-31] MEDS: DOCUSATE SODIUM LIQ 100 MG/10 ML UDC PO SCH (08:30)
[2018-01-31] MEDS: ASCORBIC ACID 500 MG TABLET PO SCH ×3 (08:30→17:47)
[2018-01-31] MEDS: VALPROIC ACID 250 MG/5 ML UDC GT SCH ×2 (08:30→12:52)
[2018-01-31] MEDS: ZINC SULFATE 220 MG CAPSULE PO SCH (08:30)
[2018-01-31] MEDS: PANTOPRAZOLE 40 MG TABLET.DR PO SCH (08:30)
[2018-01-31] MEDS: LACTOBACILLUS RHAMNOSUS GG 1 EACH CAP.SPRINK PO SCH ×2 (08:30→17:47)
[2018-01-31] MEDS: TRAMADOL HCL 50 MG TABLET PO SCH ×2 (08:31→17:47)
[2018-01-31] MEDS: DOXYCYCLINE HYCLATE (100 MG) 100 MG TABLET PO SCH ×2 (08:31→21:10)
[2018-01-31] MEDS: LEVOTHYROXINE SODIUM 125 MCG TABLET PO SCH (08:31)
[2018-01-31] MEDS: DIVALPROEX SODIUM 250 MG TABLET.DR PO SCH ×2 (08:31→17:47)
[2018-01-31] MEDS: HYDROGEL DRESSING 90 GM TUBE TP SCH ×2 (08:31→21:11)
[2018-01-31] MEDS: MULTIVITAMINS,THERAGRAN 1 UDTAB TABLET PO SCH ×2 (08:33→17:47)
[2018-01-31] MEDS: ENOXAPARIN SODIUM 30 MG/0.3 ML DISP.SYRIN SQ SCH (08:34)
[2018-01-31 10:25] LABS: BAND % (MANUAL) 1 % (0.0-5.0); EOSINOPHILS % (MANUAL) 1 % (0-4); LYMPHOCYTES % (MANUAL) 8 % (16-48); MONOCYTES % (MANUAL) 12 % (0-11.0); MYELOCYTES % 1 % (0-0); NEUTROPHILS % (MANUAL) 77 (42-76)
[2018-01-31] MEDS: POTASSIUM CHLORIDE 20 MEQ TAB.PRT.SR PO SCH ×3 (10:26→12:52)
[2018-01-31] MEDS: Magnesium 1GM/D5W 100ML PREMIX 100 ML IV SCH ×2 (10:51→11:50)
[2018-01-31] MEDS: MORPHINE SULFATE INJ 4 MG/ML DISP.SYRIN IM PRN ×2 (10:56→19:19)
[2018-01-31] MEDS: CALCIUM CARB 250MG /VITAMIN D 1 UDTAB PO SCH (12:52)
[2018-01-31] MEDS: HYDROCODONE/APAP 5/325MG 1 EACH TABLET PO PRN (12:59)
[2018-01-31 16:23] VITALS: BP 154/96
--- NOTE | 2018-01-31 19:15 | NUR ---
MS RN NOTES: RECEIVED PT AND IS ON 3LPM VIA NC. SON AT BEDSIDE. PT ASLEEP AT THIS TIME. PT HAS NICOLE CATH AND IS ATTACHED TO DRAINAGE BAG WITH YELLOW URINE DRAINING. PT HAS IV AND IS BEING INFUSED WITH NS AT 50ML/HR. CALL LIGHT WITHIN PT'S REACH. BED KEPT IN LOW, LOCKED POSITION, AND SIDE RAILS X 2UP. WILL CONTINUE TO MONITOR PT.
--- NOTE | 2018-01-31 19:23 | NUR ---
ms rn closing notes All needs provided, attended, and anticipated. Endorsed to next shift RN to continue care. Patient in stable condition.
[2018-01-31 20:00] VITALS: BP 125/70
[2018-01-31] MEDS: DONEPEZIL 5 MG TABLET PO SCH (21:11)
[2018-02-01] MEDS: IV NS 0.9% 1,000 ML IV PRN (03:12)
[2018-02-01] MEDS: PIPERACILLIN /TAZOBACTAM 3.375 G in IV NS 0.9% 50 ML IV SCH ×3 (05:00→17:02)
[2018-02-01 06:25] VITALS: BP 123/65
[2018-02-01] MEDS: HYDROCODONE/APAP 5/325MG 1 EACH TABLET PO PRN ×2 (06:28→21:11)
--- NOTE | 2018-02-01 06:32 | NUR ---
RN NOTES: PT KEEPS SCREAMING IN KYRGYZ PAIN. PT WAS ADMINISTERED NORCO 5. WILL CONTINUE TO MONITOR PT.
[2018-02-01 06:58] LABS: BASOPHILS % (AUTO) 0.2 % (0.0-2.0); EOSINOPHILS % (AUTO) 1.1 % (0.0-6.0); HEMATOCRIT 32 % (33-45); HEMOGLOBIN 10.7 g/dL (11.5-14.8); LYMPHOCYTES # (AUTO) 1.5 /CMM (0.8-4.8); LYMPHOCYTES % (AUTO) 8.7 % (20.0-44.0); MEAN CORPUSCULAR HGB CONC 33 g/dl (31.0-36.0); MEAN CORPUSCULAR VOLUME 87 fL (82-100); MONOCYTES # (AUTO) 1.8 /CMM (0.1-1.30); MONOCYTES % (AUTO) 10.6 % (2.0-12.0); NEUTROPHILS # (AUTO) 13.9 /CMM (1.8-8.9); NEUTROPHILS % (AUTO) 79.4 % (43.0-81.0); PLATELET COUNT (AUTO) 361 /CMM (150-450); RDW COEFFICIENT OF VARIATION 15.3 (11.5-15.0); RED BLOOD CELL COUNT(AUTO) 3.71 MIL/uL (4.0-5.2); WHITE BLOOD COUNT (AUTO) 17.5 K/uL (4.3-11.0)
[2018-02-01 07:10] LABS: CARBON DIOXIDE 29 mmol/L (21-32); CHLORIDE 98 mmol/L (98-107); CREATININE 0.7 mg/dL (0.6-1.3); GLUCOSE 118 mg/dL (74-106); MAGNESIUM 1.9 mg/dL (1.8-2.4); PHOSPHORUS 2.3 mg/dL (2.5-4.9); POTASSIUM 3.5 mmol/L (3.5-5.1); SODIUM SERUM 133 mmol/L (136-145); UREA NITROGEN, BLOOD 10 mg/dL (7-18)
[2018-02-01 07:15] LABS: CALCIUM, SERUM 7.5 mg/dL (8.5-10.1)
--- NOTE | 2018-02-01 07:34 | NUR ---
MS RN CLOSING NOTES: ALL NEEDS WERE ATTENDED AND ANTICIPATED. PT ON 3LPM VIA NC AND IS TOLERATING WELL. PT HAS NICOLE CATH AND OUTPUT IS 650ML/HR. PT HAS IV AND IS BEING INFUSED WITH NS AT 50ML/HR. PT ON SCD PUMPS. ASPIRATION PRECAUTIONS MADE. CALL LIGHT WITHIN PT'S REACH. BED KEPT IN LOW, LOCKED POSITION, AND SIDE RAILS X 2UP. ENDORSED TO AM NURSE FOR MASON.
--- NOTE | 2018-02-01 07:39 | NUR ---
MS RN: INITIAL NOTE RECEIVED PT A/OX1. [place] SPEAKING. MS. NO DISTRESS NOTED. NO SOB NOTED. ON 3L NC SATING AT 93%. NICOLE CATH IN PLACE AND DRAINING. BEDREST. ON PUREED DIET. THICKENED LIQUIDS. R FA #20G RUNNING NS AT 50ML/HR. SITE CLEAR AND PATENT. RESTING COMFORTABLY IN BED. CALL LIGHT WITHIN REACH.
[2018-02-01 08:00] VITALS: BP 139/71
[2018-02-01] MEDS: MULTIVITAMINS,THERAGRAN 1 UDTAB TABLET PO SCH ×2 (09:07→17:02)
[2018-02-01] MEDS: LACTOBACILLUS RHAMNOSUS GG 1 EACH CAP.SPRINK PO SCH ×2 (09:07→17:02)
[2018-02-01] MEDS: DOCUSATE SODIUM LIQ 100 MG/10 ML UDC PO SCH (09:07)
[2018-02-01] MEDS: DIVALPROEX SODIUM 250 MG TABLET.DR PO SCH ×2 (09:07→17:02)
[2018-02-01] MEDS: PANTOPRAZOLE 40 MG TABLET.DR PO SCH (09:07)
[2018-02-01] MEDS: DOXYCYCLINE HYCLATE (100 MG) 100 MG TABLET PO SCH ×2 (09:07→21:11)
[2018-02-01] MEDS: ASCORBIC ACID 500 MG TABLET PO SCH ×3 (09:08→17:02)
[2018-02-01] MEDS: LEVOTHYROXINE SODIUM 125 MCG TABLET PO SCH (09:08)
[2018-02-01] MEDS: VALPROIC ACID 250 MG/5 ML UDC GT SCH ×2 (09:08→12:13)
[2018-02-01] MEDS: TRAMADOL HCL 50 MG TABLET PO SCH ×2 (09:08→17:03)
[2018-02-01] MEDS: HYDROGEL DRESSING 90 GM TUBE TP SCH ×2 (09:08→21:34)
[2018-02-01] MEDS: ZINC SULFATE 220 MG CAPSULE PO SCH (09:08)
[2018-02-01] MEDS: ENOXAPARIN SODIUM 30 MG/0.3 ML DISP.SYRIN SQ SCH (09:12)
[2018-02-01] MEDS ORDERED: K PHOS NEUTRAL 250 MG TABLET PO ONE ×2 (09:30→12:30)
[2018-02-01 10:27] VITALS: BP 139/71
[2018-02-01] MEDS: CALCIUM CARB 250MG /VITAMIN D 1 UDTAB PO SCH (12:13)
--- NOTE | 2018-02-01 14:08 | NUR ---
MS RN: REPORT GIVEN TO LOUIE DELANEY. PT STABLE. A/OX1. NO DISTRESS NOTED. NO SOB NOTED. ON 3L NC SATING AT 96%. WOUND CARE DONE ORDERED. CONSENT FOR LEFT FOOT DEBRIDEMENT PLACED IN CHART. CONSENT GOTTEN FROM DAUGHTER CHAVA ON THE PHONE BY TWO RNS. R FA #[id number] RUNNING NS AT 50ML/HR. SITE CLEAR AND PATENT. NO REDNESS OR BLEEDING NOTED. TURNED AND REPOSITIONED Q2 HOURS. RESTING COMFORTABLY IN BED. CALL LIGHT WITHIN REACH.
--- NOTE | 2018-02-01 14:26 | NUR ---
MS/RN REPORT RECEIVED REPORT FROM ROWENA RN FOR ANY MASON. PATIENT IN BED A/O X 1, NO SIGNS OF ACUTE DISTRESS. NO COMPLAIN OF PAIN OR DISCOMFORT. ALL NEEDS ATTENDED TO. CALL LIGHT WITHIN REACH. WILL CONTINUE TO MONITOR TO ENSURE SAFETY.
[2018-02-01 15:54] VITALS: BP 136/67
--- NOTE | 2018-02-01 18:12 | NUR ---
MS/RN CLOSING NOTE PATIENT IN BED IN STABLE CONDITION. A/O X 1. GREENLANDIC SPEAKING. NO SIGNS OF ACUTE DISTRESS. NO COMPLAIN OF PAIN OR DISCOMFORT. ALL NEEDS ATTENDED TO. CALL LIGHT WITHIN REACH. WILL ENDORSE TO NEXT SHIFT FOR CONTINUITY OF CARE.
--- NOTE | 2018-02-01 19:26 | NUR ---
RN NOTES: RECEIVED PT AND IS ON 3LPM VIA NC. SON AT BEDSIDE. PT ON IV FLUIDS AND IS BEING INFUSED WITH IV NS AT 50ML/HR. PT ON SCD PUMPS. CALL LIGHT WITHIN PT'S REACH. BED KEPT IN LOW, LOCKED POSITION, AND SIDE RAILS X 2UP. WILL CONTINUE TO MONITOR PT. Addendum: 02/01/18 at 2005 by CHERELLE JACQUES RN PT ALSO HAS F/C AND IS ATTACHED TO DRAINAGE BAG WITH YELLOW URINE DRAINING.
[2018-02-01 20:00] VITALS: BP 118/64
[2018-02-01] MEDS: DONEPEZIL 5 MG TABLET PO SCH (21:11)
[2018-02-02] MEDS: IV NS 0.9% 1,000 ML IV PRN (03:01)
--- NOTE | 2018-02-02 06:54 | NUR ---
MS RN CLOSING NOTES: ALL NEEDS WERE ATTENDED AND ANTICIPATED FOR. PT KEPT CLEAN, DRY, AND COMFORTABLE. PT HAS NICOLE CATH AND OUTPUT WAS 1100ML. PT HAS IV AND IS BEING INFUSED WITH NS AT 50ML/HR. PT ON 3LPM VIA NC AND IS TOLERATING WELL. PT ON SCD PUMPS. WOUND TREATMENT PERFORMED ORDERED. CALL LIGHT WITHIN PT'S REACH. BED KEPT IN LOW, LOCKED POSITION, AND SIDE RAILS X 2UP. WILL ENDORSE TO AM NURSE FOR MASON.
--- NOTE | 2018-02-02 07:40 | NUR ---
MS RN NOTES PATIENT RECEIVED RESTING INSIDE ROOM, AWAKE, ALERT AND ORIENTED X 1, VERBALLY RESPONSIVE AND RESPONDS TO VERBAL AND TACTILE STIMULI. BREATHING EVEN AND UNLABORED. NO SOB OR ACUTE DISTRESS NOTED AT THIS TIME. DENIES ANY PAIN OR DISCOMFORT. NO CHANGES IN LOC NOTED AT THIS TIME. NICOLE CATHETER IN PLACE CONNECTED TO DRAINAGE BAG WITH CLEAR YELLOW URINE OUTPUT. IV SITE ON RFA WITH HS AT 50CC/HR. WILL CONTINUE TO MONITOR. BED LOCKED AND IN LOW POSITION. BILATERAL UPPER SIDE RAILS UP AND LOCKED. CALL LIGHT WITHIN EASY REACH
[2018-02-02 08:00] VITALS: BP 122/67
[2018-02-02] MEDS: VALPROIC ACID 250 MG/5 ML UDC GT SCH ×2 (08:26→12:19)
[2018-02-02] MEDS: LEVOFLOXACIN (500MG) 500 MG TABLET PO SCH (08:26)
[2018-02-02] MEDS: DOXYCYCLINE HYCLATE (100 MG) 100 MG TABLET PO SCH ×2 (08:26→21:23)
[2018-02-02] MEDS: DOCUSATE SODIUM LIQ 100 MG/10 ML UDC PO SCH (08:26)
[2018-02-02] MEDS: PANTOPRAZOLE 40 MG TABLET.DR PO SCH (08:26)
[2018-02-02] MEDS: LEVOTHYROXINE SODIUM 125 MCG TABLET PO SCH (08:27)
[2018-02-02] MEDS: ASCORBIC ACID 500 MG TABLET PO SCH ×3 (08:27→16:18)
[2018-02-02] MEDS: LACTOBACILLUS RHAMNOSUS GG 1 EACH CAP.SPRINK PO SCH ×2 (08:27→16:17)
[2018-02-02] MEDS: TRAMADOL HCL 50 MG TABLET PO SCH ×2 (08:28→16:17)
[2018-02-02] MEDS: ZINC SULFATE 220 MG CAPSULE PO SCH (08:29)
[2018-02-02] MEDS: HYDROGEL DRESSING 90 GM TUBE TP SCH ×2 (08:29→21:23)
[2018-02-02] MEDS: DIVALPROEX SODIUM 250 MG TABLET.DR PO SCH ×2 (08:29→16:18)
[2018-02-02] MEDS: MULTIVITAMINS,THERAGRAN 1 UDTAB TABLET PO SCH ×2 (08:31→16:18)
[2018-02-02] MEDS: ENOXAPARIN SODIUM 30 MG/0.3 ML DISP.SYRIN SQ SCH (08:33)
[2018-02-02 09:00] VITALS: BP 122/67
[2018-02-02 09:22] LABS: BASOPHILS % (AUTO) 0.3 % (0.0-2.0); EOSINOPHILS % (AUTO) 1.9 % (0.0-6.0); HEMATOCRIT 37 % (33-45); HEMOGLOBIN 12.1 g/dL (11.5-14.8); LYMPHOCYTES # (AUTO) 2.2 /CMM (0.8-4.8); LYMPHOCYTES % (AUTO) 16.5 % (20.0-44.0); MEAN CORPUSCULAR HGB CONC 33 g/dl (31.0-36.0); MEAN CORPUSCULAR VOLUME 86 fL (82-100); MONOCYTES # (AUTO) 1.5 /CMM (0.1-1.30); MONOCYTES % (AUTO) 11.6 % (2.0-12.0); NEUTROPHILS # (AUTO) 9.2 /CMM (1.8-8.9); NEUTROPHILS % (AUTO) 69.7 % (43.0-81.0); PLATELET COUNT (AUTO) 347 /CMM (150-450); RDW COEFFICIENT OF VARIATION 15.4 (11.5-15.0); RED BLOOD CELL COUNT(AUTO) 4.29 MIL/uL (4.0-5.2); WHITE BLOOD COUNT (AUTO) 13.2 K/uL (4.3-11.0)
[2018-02-02 09:36] LABS: CALCIUM, SERUM 7.8 mg/dL (8.5-10.1); CARBON DIOXIDE 33 mmol/L (21-32); CHLORIDE 101 mmol/L (98-107); CREATININE 0.7 mg/dL (0.6-1.3); GLUCOSE 92 mg/dL (74-106); MAGNESIUM 1.9 mg/dL (1.8-2.4); PHOSPHORUS 2.9 mg/dL (2.5-4.9); POTASSIUM 3.7 mmol/L (3.5-5.1); SODIUM SERUM 139 mmol/L (136-145); UREA NITROGEN, BLOOD 9 mg/dL (7-18)
--- NOTE | 2018-02-02 11:10 | NUR ---
MS RN NOTES PATIENT SEEN AND EXAMINED BY DR. MAE. DEBRIDEMENT DONE TO LEFT FOOT BY DR. MAE. MINIMAL BLEEDING NOTED, SITE COVERED WITH DRY DRESSING. WILL CONTINUE TO MONITOR
[2018-02-02] MEDS: CALCIUM CARB 250MG /VITAMIN D 1 UDTAB PO SCH (12:19)
[2018-02-02 16:00] VITALS: BP 126/83
--- NOTE | 2018-02-02 18:27 | NUR ---
MS RN NOTES PATIENT RESTING INSIDE ROOM. AWAKE, ALERT AND ORIENTED X 1. VERBALLY RESPONSIVE AND RESPONDS TO VERBAL AND TACTILE STIMULI. BREATHING EVEN AND UNLABORED. ON O2 USE AT 3L/MIN VIA NC. NO NASAL IRRITATION OR DRYNESS NOTED. NO SOB OR ACUTE DISTRESS. PATIENT DENIES ANY PAIN OR DISCOMFORT AT THIS TIME. PATIENT AFEBRILE, SKIN DRY AND WARM TO TOUCH. NO CHANGES IN LOC NOTED AT THIS TIME. FC DRAINING WELL WITH TOTAL OUTPUT OF 1100 ML DURING THIS SHIFT. URINE OUTPUT CLEAR YELLOW. S/P DEBRIDEMENT OF LEFT FOOT. BILATERAL HEELS FLOATED WITH PILLOWS WHILE ON BED. BLE SCD PUMPS IM PLACE. PATIENT ASSISTED TO A COMFORTABLE POSITION Q2 WITH POSITIONING PILLOWS FOR CIRCULATION AND COMFORT. BED LOCKED AND IN LOW POSITION. BILATERAL UPPER SIDE RAILS UP AND LOCKED. IV SITE ON RIGHT FOREARM INTACT AND PATENT, NO BLEEDING OR SWELLING NOTED. WILL ENDORSE TO INCOMING SHIFT FOR MASON
--- NOTE | 2018-02-02 19:55 | NUR ---
RN OPENING NOTES RECEIVED REPORT FROM KHALIDA RIBEIRO. FOUND Pt AWAKE, RESTING IN BED. Pt IS A/OX1, KHMER SPEAKING, CONFUSED. NICOLE CATHETER IN PLACE, DRAINING WELL. IV ACCESS ON RFA #20G. NS @50ML/HR. SAFETY MEASURES IN PLACE. BED LOW, LOCKED, HOB ELEVATED, SIDE RAILS UP, CALL LIGHT AND BEDSIDE TABLE WITHIN REACH. WILL CONTINUE TO MONITOR Pt THROUGHOUT THE NIGHT FOR SAFETY.
[2018-02-02 20:00] VITALS: BP 120/79
[2018-02-02 21:00] VITALS: BP 120/79
--- NOTE | 2018-02-02 21:00 | NUR ---
RN NOTES Pt LOOKED LIKE SHE WAS HAVING SOME SOB. INFORMED RT TONIA FOR A BREATHING TREATMENT.
[2018-02-02] MEDS: DONEPEZIL 5 MG TABLET PO SCH (21:23)
[2018-02-02] MEDS: ALBUTEROL FS 2.5 MG/3 ML VIAL.NEB NEB PRN (21:26)
[2018-02-02] MEDS: IPRATROPIUM NEB FS 0.5 MG/2.5 ML AMPUL.NEB NEB PRN (21:26)
--- NOTE | 2018-02-03 06:45 | NUR ---
RN CLOSING NOTES NO SIGNIFICANT CHANGES IN Pt's CONDITION. NO S/S OF ACUTE DISTRESS OR SOB NOTED DURING THE NIGHT. ALL NEEDS MET AND ATTENDED TO. SAFETY MEASURES IN PLACE. ALL ORDERS CARRIED OUT. NICOLE OUTPUT 400CC. WILL ENDORSE TO DAYSHIFT RN FOR Pt's MASON.
[2018-02-03 07:08] LABS: BASOPHILS % (AUTO) 0.3 % (0.0-2.0); EOSINOPHILS % (AUTO) 1.7 % (0.0-6.0); HEMATOCRIT 33 % (33-45); HEMOGLOBIN 11.2 g/dL (11.5-14.8); LYMPHOCYTES # (AUTO) 1.8 /CMM (0.8-4.8); LYMPHOCYTES % (AUTO) 15.2 % (20.0-44.0); MEAN CORPUSCULAR HGB CONC 33 g/dl (31.0-36.0); MEAN CORPUSCULAR VOLUME 86 fL (82-100); MONOCYTES # (AUTO) 1.2 /CMM (0.1-1.30); MONOCYTES % (AUTO) 10.8 % (2.0-12.0); NEUTROPHILS # (AUTO) 8.3 /CMM (1.8-8.9); PLATELET COUNT (AUTO) 369 /CMM (150-450); RDW COEFFICIENT OF VARIATION 15.3 (11.5-15.0); RED BLOOD CELL COUNT(AUTO) 3.88 MIL/uL (4.0-5.2); WHITE BLOOD COUNT (AUTO) 11.5 K/uL (4.3-11.0)
[2018-02-03 07:25] LABS: CALCIUM, SERUM 7.5 mg/dL (8.5-10.1); CARBON DIOXIDE 31 mmol/L (21-32); CHLORIDE 102 mmol/L (98-107); CREATININE 0.6 mg/dL (0.6-1.3); GLUCOSE 87 mg/dL (74-106); MAGNESIUM 1.7 mg/dL (1.8-2.4); PHOSPHORUS 2.9 mg/dL (2.5-4.9); POTASSIUM 3.4 mmol/L (3.5-5.1); SODIUM SERUM 139 mmol/L (136-145); UREA NITROGEN, BLOOD 10 mg/dL (7-18)
--- NOTE | 2018-02-03 08:00 | NUR ---
MS RN NOTES PATIENT IN BED RESTING NO SOB OR ACUTE DISTRESS NOTED. PATIENT ALERT, ORIENTED X1. PERIPHERAL IV INTACT PATENT. BED IN LOW LOCKED POSITION. CALL LIGHT WITHIN REACH. WILL CONTINUE TO MONITOR.
[2018-02-03] MEDS: DOXYCYCLINE HYCLATE (100 MG) 100 MG TABLET PO SCH (08:08)
[2018-02-03] MEDS: DIVALPROEX SODIUM 250 MG TABLET.DR PO SCH ×2 (08:08→17:46)
[2018-02-03] MEDS: ASCORBIC ACID 500 MG TABLET PO SCH ×3 (08:08→17:46)
[2018-02-03] MEDS: LACTOBACILLUS RHAMNOSUS GG 1 EACH CAP.SPRINK PO SCH ×2 (08:08→17:46)
[2018-02-03] MEDS: PANTOPRAZOLE 40 MG TABLET.DR PO SCH (08:08)
[2018-02-03] MEDS: ZINC SULFATE 220 MG CAPSULE PO SCH (08:08)
[2018-02-03] MEDS: LEVOFLOXACIN (500MG) 500 MG TABLET PO SCH (08:08)
[2018-02-03] MEDS: LEVOTHYROXINE SODIUM 125 MCG TABLET PO SCH (08:08)
[2018-02-03] MEDS: VALPROIC ACID 250 MG/5 ML UDC GT SCH ×2 (08:09→13:25)
[2018-02-03] MEDS: DOCUSATE SODIUM LIQ 100 MG/10 ML UDC PO SCH (08:09)
[2018-02-03 08:10] VITALS: BP 127/69
[2018-02-03] MEDS: ENOXAPARIN SODIUM 30 MG/0.3 ML DISP.SYRIN SQ SCH (08:10)
[2018-02-03] MEDS: HYDROGEL DRESSING 90 GM TUBE TP SCH ×2 (08:12→21:05)
[2018-02-03] MEDS: TRAMADOL HCL 50 MG TABLET PO SCH (08:18)
[2018-02-03] MEDS: MULTIVITAMINS,THERAGRAN 1 UDTAB TABLET PO SCH ×2 (08:18→17:46)
--- NOTE | 2018-02-03 11:00 | NUR ---
MS RN NOTES PATIENTS IV NOTED WITH LEAKING PERIPHERAL IV, SITE CHANGED TO LEFT FOREARM G20 WITH ADEQUATE BLOOD RETURN. WILL CONTINUE TO MONITOR.
[2018-02-03] MEDS: Magnesium 1GM/D5W 100ML PREMIX 100 ML IV SCH ×2 (11:27→13:25)
[2018-02-03] MEDS ORDERED: POTASSIUM CHLORIDE 20 MEQ TAB.PRT.SR PO SCH (12:30)
[2018-02-03] MEDS: CALCIUM CARB 250MG /VITAMIN D 1 UDTAB PO SCH (13:25)
[2018-02-03 16:12] VITALS: BP 155/74
[2018-02-03 16:48] VITALS: BP 155/74
--- NOTE | 2018-02-03 18:44 | NUR ---
MS RN NOTES PATIENT IN BED RESTING NO SOB OR ACUTE DISTRESS NOTED. ALL DUE MEDICATIONS ADMINISTERED. NICOLE INTACT PATENT DRAINING YELLOW CLEAR URIN. ALL NEEDS MET. WILL ENDORSE TO PM SHIFT MASON.
--- NOTE | 2018-02-03 19:20 | NUR ---
MS RN OPENING NOTES RECEIVED PT LAYING IN BED WITH HOB ELEVATED. AWAKE AND RESPONSIVE. RESPIRATIONS ARE EVEN AND UNLABORED, NOT IN ANY ACUTE DISTRESS NOTED. NO FACIAL GRIMACING OR MOANING NOTED. IV SITE INTACT, NO INFILTRATION NOTED. SAFETY MEASURES ARE IN PLACE. BED IS IN ITS LOW AND LOCKED POSITION. INSTRUCTED PT TO USE CALL LIGHT WHEN ASSISTANCE IS NEEDED, CALL LIGHT IS LEFT WITHIN REACH. WILL CONTINUE TO MONITOR THROUGHOUT SHIFT.
[2018-02-03 20:00] VITALS: BP 141/68
[2018-02-03] MEDS: LINEZOLID 600 MG TABLET PO SCH (21:05)
[2018-02-03] MEDS: DONEPEZIL 5 MG TABLET PO SCH (21:05)
[2018-02-04] MEDS: IV NS 0.9% 1,000 ML IV PRN (02:38)
--- NOTE | 2018-02-04 06:33 | NUR ---
MS RN CLOSING NOTES ALL DUE MEDS GIVEN, NEEDS MET AND RENDERED. AWAKE AND RESPONSIVE. RESPIRATIONS ARE EVEN AND UNLABORED, NOT IN ANY ACUTE DISTRESS NOTED. NO FACIAL GRIMACING OR MOANING NOTED. IV SITE INTACT, NO INFILTRATION NOTED. DRESSING KEPT CLEAN AND DRY. SAFETY MEASURES ARE IN PLACE. BED IS IN ITS LOWEST AND LOCKED POSITION. WILL ENDORSE TO NEXT SHIFT FOR CONTINUITY OF CARE.
--- NOTE | 2018-02-04 07:46 | NUR ---
MS RN: INITIAL NOTE RECEIVED PT A/OX1. NON VERBAL. OPENS EYES. ABLE TO NOD HEAD. ENGLISH SPEAKING. MS. INCONTINENT. NICOLE CATH IN PLACE AND DRAINING. ON PUREED DIET. THICKENED LIQUIDS. F RA #20G RUNNING NS AT 50ML/HR. SITE CLEAR AND PATENT. NO REDNESS OR BLEEDING NOTED. NO DISTRESS NOTED. NO PAIN NOTED USING FLACC SCALE. NO SOB NOTED. ON 3L NC SATING AT 95%. RESTING COMFORTABLY IN BED. CALL LIGHT WITHIN REACH.
[2018-02-04 08:00] VITALS: BP 128/68
[2018-02-04 08:04] LABS: CALCIUM, SERUM 7.3 mg/dL (8.5-10.1); CARBON DIOXIDE 33 mmol/L (21-32); CHLORIDE 100 mmol/L (98-107); CREATININE 0.6 mg/dL (0.6-1.3); GLUCOSE 86 mg/dL (74-106); MAGNESIUM 1.7 mg/dL (1.8-2.4); POTASSIUM 3.1 mmol/L (3.5-5.1); SODIUM SERUM 137 mmol/L (136-145); UREA NITROGEN, BLOOD 8 mg/dL (7-18)
[2018-02-04] MEDS: VALPROIC ACID 250 MG/5 ML UDC GT SCH ×2 (08:29→13:21)
[2018-02-04] MEDS: DOCUSATE SODIUM LIQ 100 MG/10 ML UDC PO SCH (08:29)
[2018-02-04] MEDS: LACTOBACILLUS RHAMNOSUS GG 1 EACH CAP.SPRINK PO SCH (08:30)
[2018-02-04] MEDS: DIVALPROEX SODIUM 250 MG TABLET.DR PO SCH (08:30)
[2018-02-04] MEDS: ASCORBIC ACID 500 MG TABLET PO SCH ×2 (08:30→13:21)
[2018-02-04] MEDS: LEVOTHYROXINE SODIUM 125 MCG TABLET PO SCH (08:30)
[2018-02-04] MEDS: LEVOFLOXACIN (500MG) 500 MG TABLET PO SCH (08:30)
[2018-02-04] MEDS: HYDROGEL DRESSING 90 GM TUBE TP SCH (08:30)
[2018-02-04] MEDS: ZINC SULFATE 220 MG CAPSULE PO SCH (08:30)
[2018-02-04] MEDS: PANTOPRAZOLE 40 MG TABLET.DR PO SCH (08:30)
[2018-02-04] MEDS: LINEZOLID 600 MG TABLET PO SCH (08:30)
[2018-02-04] MEDS: ENOXAPARIN SODIUM 30 MG/0.3 ML DISP.SYRIN SQ SCH (08:33)
[2018-02-04] MEDS: MULTIVITAMINS,THERAGRAN 1 UDTAB TABLET PO SCH (08:43)
[2018-02-04] MEDS ORDERED: POTASSIUM CHLORIDE 20 MEQ TAB.PRT.SR PO SCH ×2 (10:00)
[2018-02-04] MEDS ORDERED: MAGNESIUM OXIDE 400 MG TABLET PO ONE (10:30)
[2018-02-04] MEDS: CALCIUM CARB 250MG /VITAMIN D 1 UDTAB PO SCH (11:19)
--- NOTE | 2018-02-04 15:53 | NUR ---
MS RN: DISCHARGE NOTE PT D/C BACK TO [facility] FOR CONTINUING CARE. ALL MEDICATIONS GIVEN ON TIME. NO ADVERSE REACTIONS NOTED. NO SOB NOTED. ON 3L NC SATING AT 96%. NO DISTRESS NOTED. PAIN CONTROLLED WITH PAIN MEDICATIONS NEEDED SCALE USING FLACC SCALE. A/OX1. BULGARIAN SPEAKING. NICOLE CATH IN PLACE AND DRAINING. LEFT FACILITY WITH NICOLE. OUTPUT 1350. BEDREST. TURNED AND REPOSITIONED Q 2HOURS. ON PUREED DIET. THICKENED LIQUIDS. WOUND CARE DONE ORDERED. R FA #20 IV D/C. SITE CLEAR. NO REDNESS OR BLEEDING NOTED. ALL DISCHARGE INFORMATION PROVIDED TO [facility]. TWO RNS SIGNED DUE TO INABILITY OF PT TO SIGN. ALL BELONGINGS ACCOUNTED FOR. PRABHA DAUGHTER NOTIFIED OF TRANSFER. GAVE REPORT TO GALLO AT [facility]. LEFT FACILITY IN [facility]ULANCE WITH TWO EMT.
== END 2018-02-04 15:45 | DRG 166 ==
LOC: ER 19:45 → TELE 22:29 → MED 01-28 09:30
PROVIDERS: ADMIT Internal Medicine Nephrology; ATTEND Internal Medicine Nephrology
PROC: 0KBN0ZZ Excision of Right Hip Muscle, Open Approach (ICD-10-PCS; principal; 2018-01-28)
PROC: 0JBR0ZZ Excision of Left Foot Subcutaneous Tissue and Fascia, Open Approach (ICD-10-PCS; 2018-01-30)
DX: J18.9 Pneumonia, unspecified organism (principal); L89.894 Pressure ulcer of other site, stage 4; L97.529 Non-pressure chronic ulcer of other part of left foot with unspecified severity; G30.9 Alzheimer's disease, unspecified; E87.1 Hypo-osmolality and hyponatremia; R13.10 Dysphagia, unspecified; F02.80 Dementia in other diseases classified elsewhere, unspecified severity, without behavioral disturbance, psychotic disturbance, mood disturbance, and anxiety; N39.0 Urinary tract infection, site not specified; E78.5 Hyperlipidemia, unspecified; I10 Essential (primary) hypertension; E03.9 Hypothyroidism, unspecified; M85.80 Other specified disorders of bone density and structure, unspecified site; R26.9 Unspecified abnormalities of gait and mobility; M19.90 Unspecified osteoarthritis, unspecified site; Z79.899 Other long term (current) drug therapy; I70.202 Unspecified atherosclerosis of native arteries of extremities, left leg; G89.4 Chronic pain syndrome
CPT/HCPCS: 36415; 71045-TC; 80048-TC; 80076-TC; 81000-TC; 83735-TC; 83880; 84100-TC; 84484-TC; 85025-TC; 87040-TC; 87070-TC; 87081-TC; 87086-TC; 87186-TC; 94799-TC; A4216; A4606; A6248; A6253; A6402; A6403; J1650; J1940; J1956; J2270; J2543; J3475; J3490; J7030; J7060; Z7610